=== PATIENT | female | born 1935 | race Caucasian/White ===

== ENCOUNTER → 2024-01-12 13:47 | Outpatient (BNVA) | payer MEDICARE, SELFPAY | PROVIDERS: Family Provider Nurse Practitioner Family; PCP Nurse Practitioner Family; Referring Provider Registered Nurse; Visit Provider Surgery | DX: R13.19 Other dysphagia (principal); R03.0 Elevated blood-pressure reading, without diagnosis of hypertension | CPT/HCPCS: 99204 ==

== ENCOUNTER 2024-01-20 10:17 | Day surgery (SDC) | payer MEDICARE, SELFPAY ==
--- NOTE | 2024-01-20 10:39 | P.HPUD_ITS ---
Surgery/Procedure H&P Update DATE OF PROCEDURE: January 20, 2024 DATE H&P PERFORMED: 01/12/24 H&P UPDATE INFORMATION: I have reviewed H&P completed within last 30 days, I have examined patient prior to procedure, No changes to prior documentation and H&P is in [facility] EMR on date indicated PLANNED PROCEDURE: Operation Date: 01/20/24 11:30 Proposed Procedures p EGD Dilation W/ Balloon [id number], R13.19(Not Applicable) - Christiano Mena MD
[2024-01-20 10:50] VITALS: BP 208/122; PULSE 84; RESP 20; TEMP 36.8; O2SAT 95; BMI 31.1
[2024-01-20] MEDS: sodium chloride 0.9% 1,000 ML 30 ML IV (10:59)
--- NOTE | 2024-01-20 11:10 | ANES.PREANE2 ---
Pre-Anesthetic Assessment Height/Weight: Height 5 ft 2 in Weight 170 lb Temp Pulse Resp BP Pulse Ox O2 Del Method 98.2 F 84 20 H 208/122 95 Room Air 01/20/24 10:50 01/20/24 10:50 01/20/24 10:50 01/20/24 10:50 01/20/24 10:50 01/20/24 10:50 Preop Diagnosis: Dysphagia Operation Date: 01/20/24 11:30 Proposed Procedures p EGD Dilation W/ Balloon [id number], R13.19(Not Applicable) - Christiano Mena MD Was Beta Lianne taken within 24 hours: N/A Was Clonidine taken within 24 hours: N/A Last intake: Intake Last Liquid Date 01/19/24 Last Liquid Time 17:30 Last Solid Date 01/19/24 Last Solid Time 17:30 Social No alcohol and No tobacco Exam alert, oriented x 3, clear to auscultation bilaterally and regular rate & rhythm Airway Submandibular: within normal limits Cervical ROM: within normal limits Mallampati: Class II Dentition: false Anesthetic Plan ASA status: 2 Anesthesia: MAC Other: No prior issues with anesthesia NPO since yesterday History of hypertension on lisinopril. Preop BP 208/122. Will recycle GERD on Protonix History of dysphagia Patient lives at home by herself, still able to perform ADLs Plan for MAC anesthetic Medications/Allergies Home Medications Medication Instructions Recorded Confirmed Last Taken Type lisinopril 5 mg tablet 5 mg PO DAILY 30 days #30 tabs 01/06/24 01/18/24 01/19/24 Rx pantoprazole 20 mg tablet,delayed 20 mg PO DAILY 30 days #30 tabs 01/06/24 01/18/24 01/19/24 Rx release Allergies Allergy/AdvReac Type Severity Reaction Status Date / Time No Known Allergies Allergy Verified 01/18/24 15:37 Current Medications Generic Name Dose Route Start Last Admin Trade Name Freq PRN Reason Stop Dose Admin Sodium Chloride 1,000 mls @ 30 mls/hr 01/20/24 10:30 01/20/24 10:59 Sodium Chloride 0.9% IV 30 mls/hr .Q24H BEST Administration PFSH Anesthesia Medical History History of esophageal stricture Frieda-Lopez tear Surgical History Hx of cholecystectomy Social History Smoking and tobacco/nicotine status: never used tobacco/nicotine Alcohol intake: never Substance/Drug Use: never Data Anesthesia Cardiac Studies: No Data to Display
[2024-01-20 11:25] VITALS: BP 148/85; PULSE 81; RESP 14; TEMP 36.1; O2SAT 94
[2024-01-20 11:43] VITALS: BP 143/91; PULSE 76; RESP 16; O2SAT 95
--- NOTE | 2024-01-20 12:00 | ANE.PACU2 ---
Inpatient post-anesthesia follow up: Airway intact: Yes Vital signs: Temperature 97.0 F Pulse Rate 76 Respiratory Rate 16 Blood Pressure 143/91 Pulse Oximetry 95 Oxygen Delivery Me thod Room Air Oxygen Flow Rate Fraction of Inspir ed Oxygen Hydration adequate: Yes Nausea and vomiting: No Pain level: 1 Mental status: Baseline
== END 2024-01-20 12:00 | disposition home or self-care (01) ==
PROVIDERS: PCP Registered Nurse; Visit Provider Surgery
DX: R13.19 Other dysphagia (principal); K29.30 Chronic superficial gastritis without bleeding; I10 Essential (primary) hypertension; K21.9 Gastro-esophageal reflux disease without esophagitis; R03.0 Elevated blood-pressure reading, without diagnosis of hypertension
CPT/HCPCS: 43239; 88305; J2704; J7030

== ENCOUNTER → 2024-02-02 10:48 | Outpatient (BNVA) | payer MEDICARE, SELFPAY | PROVIDERS: PCP Registered Nurse; Visit Provider Surgery | DX: Z09 Encounter for follow-up examination after completed treatment for conditions other than malignant neoplasm (principal); R03.0 Elevated blood-pressure reading, without diagnosis of hypertension | CPT/HCPCS: 99213 ==

== ENCOUNTER 2024-09-18 11:31 | Emergency (ER) | payer MEDICARE, SELFPAY ==
[2024-09-18 11:34] VITALS: BP 175/125; PULSE 86; TEMP 36.4; O2SAT 97; BMI 29.9
--- OUTSIDE RECORDS SUMMARY | 2024-09-18 11:36 | XMS_ITS | Clinical Summary ---
Author Organization [employer] Address [address] [place]: Epic Prelude [place]T [place] [address] Care Team Providers Care Gas Technician Name Role Phone Unavailable Primary Care Provider Unavailabl e Allergies No known active allergies Medications oxyCODONE (ROXICODONE) 5 mg tablet Take 1 Tablet (5 mg) by mouth every 4 hours as needed for Pain. Max Daily Amount: 30 mg 40 Tablet 0 07/28/2016 Active acetaminophen (TYLENOL) 325 mg tablet Take 2 Tablets (650 mg) by mouth every 6 hours as needed for Other (See Comment) (See admin instructions ). 07/30/2016 Active docusate sodium (COLACE) 100 mg capsule Take 1 Capsule (100 mg) by mouth 2 times daily. 07/30/2016 Active Active Problems Problem Noted Date Diagnosed Date Visit for wound check 08/20/2016 Hypokalemia 07/27/2016 Calculus of bile duct with a cute cholecystitis with obstruction 07/24/2016 Choledocholithiasis Social History Tobacco Use Types Packs/Day Years Used Date Smoking Tobacco: Never Smokeless Tobacco: Never Alcohol Use Standard Drinks/Week Comments No 0 (1 standard drink = 0.6 oz pur e alcohol) Comments Unknown Sex and Gender Information Value Date Recorded Sex Assigned at Not on file Legal Sex Female 11:51 AM BELL HOLE DIGGER Gender Identity Not on file Sexual Orientation Not on file Last Filed Vital Signs Vital Sign Reading Time Taken Comments Blood Pressure 104/60 09/08/2017 11:38 AM CDT Pulse 83 09/08/2017 11:38 AM CDT Temperature 36.4 C (97.6 F) 09/08/2017 10:21 AM CDT Respiratory Rate 22 09/08/2017 11:38 AM CDT Oxygen Saturation - - Inhaled Oxygen Concentration - - Weight 93.4 kg (206 lb) 09/08/2017 7:44 AM CDT Height 160 cm (5' 3 ) 09/08/2017 7:44 AM CDT Body Mass Index 36.49 09/08/2017 7:44 AM CDT Plan of Treatment Health Maintenance Due Date Last Done Comments DTAP/TDAP/TD VACCINES (1 - Tdap) 1954 PNEUMOCOCCAL VACCINE 50+ YEARS (1 of 1 - PCV) 12/15/18 88 ZOSTER VACCINE (1 of 2) 12/16/1987 OSTEOPOROSIS SCREENING 2002 RSV VACCINE (60+ or ) (1 - 1-dose 75+ series) 2012 INFLUENZA VACCINE (#1) 2023 Medical Devices Implanted Type Area Director Career Services Device Identifier Shelf Expiration Date Model / Serial / Lot Lens Io Bi-Aspheric Softechd+20.0 - [id number] Implanted:Qty: 1 on 07/07/2017 by Diego Sanchez MD Eye Right: Eye [employer] 03/25/2022 SOFTECHD+ 20.0 / [id number] / [id number] Lens Io Bi-Aspheric Softechd+20.0 - [id number] Implanted:Qty: 1 on 09/08/2017 by Diego Sanchez MD Eye Left: Eye [employer] 03/25/2022 SOFTECHD+ 20.0 / [id number] / [id number] Hemostatic Surgicel 6x9in 6 - Sna Implanted:Qty: 1 on 07/26/2016 by Duy Granda Jr., MD Hemostatic N/A: Abdomen J[employer]J- [employer] 04/21/2021 1944 / NA / [id number]
--- OUTSIDE RECORDS SUMMARY | 2024-09-18 11:36 | XMS_ITS | Encounter Summary ---
Author Organization [facility] Address [address] [place] [address] Care Team Providers Care Neuropsychiatric Aide Name Role Phone KAREN Piedra Sr., Michael Dave Primary Care Pro vider Reason for Referral * Outpatient Services (Routine) - Closed Specialty Diagnoses / Procedures Referred By Peter goff Referred To Contact Radiology Diagnoses Flank pain Dysuria Procedures CT ABDOMEN PELVIS WO CONTRAST Lul Piedra Sr., FNP [address] [place] [address] Phone: tel: fax: [facility] CT Scan [place] [address] [place] [address] Phone: tel: fax: Referral ID Status Reason Start Date Expiration Date V isits Requested Visits Authorized [id number] Closed MTN View CTS to Schedule (SGF) 03/01/2013 04/01/2014 1 1 DSCRIBER MECHANIC Encounter Details Date Type Department Care Team (Latest Contact Info) Description 03/01/2013 Ancillary Orders [facility] Centralized Scheduling [address] [facility] [address] [address] [place] [address] Lul Piedra Sr., FNP [address] [place] [address] Flank pain (Primary Dx); Dysuria Social History Tobacco Use Types Packs/Day Years Used Date Smoking Tobacco: Never Alcohol Use Standard Drinks/Week Comments No 0 (1 standard drink = 0.6 oz pur e alcohol) Comments No Sex and Gender Information Value Date Recorded Sex Assigned at Not on file Legal Sex Female 5:18 AM SOUNDSCRIBER MECHANIC Gender Identity Not on file Sexual Orientation Not on file documented as of this encounter Plan of Treatment Not on file documented as of this encounter Results * CT ABDOMEN PELVIS WO CONTRAST (03/02/2013 10:54 AM SOUNDSCRIBER MECHANIC) Anatomical Region Laterality Modality Abdomen Computed Tomogra phy 03/02/2013 10:4 0 AM SOUNDSCRIBER MECHANIC Narrative 03/02/2013 12:00 PM SOUNDSCRIBER MECHANIC PROCEDURE CT ABDOMEN and PELVIS, non-contrast 02 March 2013 TECHNIQUE With the patient supine in the scanning gantry, with no oral or IV contrast administered, helical axial imaging was obtained from above the diaphragm through the pelvis at 5 mm increments for 92 axial images. Sagittal and coronal reconstructions are also obtained. DESCRIPTION The study fails reveal evidence of hydronephrosis or nephrolithiasis. Appendix is identified without inflammatory change. There is note of a septated fat containing anterior abdominal wall hernia at approximately the level of the umbilicus measuring approximately 9.7 cm craniocaudally in the subcutaneous fat a 2.9 cm abdominal wall defect in the para midline on the left. There is diverticulosis of the sigmoid colon. The small bowel pattern is unremarkable. The visualized portion of the lung bases is unremarkable. There is cardiomegaly by estimated cardiothoracic ratio. The unenhanced liver shows a 4. a centimeter water density laterally in the right lobe of the liver anterior to the right kidney compatible with cysts. There is a 6 mm lucency in the left lobe of the liver anteriorly compatible with small cyst or hemangioma. No gallbladder calculi are seen. Pancreas and spleen appear unremarkable and adrenal glands appear unremarkable. There is a small sliding-type hiatal hernia present. 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 IMPRESSION 1. cardiomegaly 2. negative for cholelithiasis, nephrolithiasis or hydronephrosis 3. negative for appendicitis 4. paraumbilical abdominal wall hernia and small hiatal hernia Procedure Note Maxime Quiroz MD - 03/02/[address] ABDOMEN and PELVIS, non-contrast 02 March 2013 TECHNIQUE With the patient supine in the scanning gantry, with no oral or IV contrast administered, helical axial imaging was obtained from above the diaphragm through the pelvis at 5 mm increments for 92 axial images. Sagittal and coronal reconstructions are also obtained. DESCRIPTION The study fails reveal evidence of hydronephrosis or nephrolithiasis. Appendix is identified without inflammatory change. There is note of a septated fat containing anterior abdominal wall hernia at approximately the level of the umbilicus measuring approximately 9.7 cm craniocaudally in the subcutaneous fat a 2.9 cm abdominal wall defect in the para midline on the left. There is diverticulosis of the sigmoid colon. The small bowel pattern is unremarkable. The visualized portion of the lung bases is unremarkable. There is cardiomegaly by estimated cardiothoracic ratio. The unenhanced liver shows a 4. a centimeter water density laterally in the right lobe of the liver anterior to the right kidney compatible with cysts. There is a 6 mm lucency in the left lobe of the liver anteriorly compatible with small cyst or hemangioma. No gallbladder calculi are seen. Pancreas and spleen appear unremarkable and adrenal glands appear unremarkable. There is a small sliding-type hiatal hernia present. 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 IMPRESSION 1. cardiomegaly 2. negative for cholelithiasis, nephrolithiasis or hydronephrosis 3. negative for appendicitis 4. paraumbilical abdominal wall hernia and small hiatal hernia us KAREN Anne Sr. CT ORDERABLES F inal Result documented in this encounter Visit Diagnoses Diagnosis Flank pain- Primary Abdominal pain, unspecified site Dysuria Flank pain Abdominal pain, unspecified site Dysuria documented in this encounter Care Teams Neuropsychiatric Aide Relationship Specialty Start Date End Date Lul Piedra Sr., FNP [address] [place] [address] PCP - General NURSE PRACTITIONER 03/02/13 documented as of this encounter
--- OUTSIDE RECORDS SUMMARY | 2024-09-18 11:36 | XMS_ITS | Encounter Summary ---
Author Organization [facility] Address [address] [place] [address] Care Team Providers Care Shirt Sorter Name Role Phone KAREN Piedra Sr., Lul Langley Primary Care Pro vider Encounter Details Date Type Department Care Team (Latest Contact Info) Description 09/05/2001 Outpatient Historical [facility] Medicine [place] [address] [facility] [address] [place] [phone] Gianni Roman, NO ADDRESS ON FILE FX RADIUS NOS-CLOSED (Primary Dx) Social History Tobacco Use Types Packs/Day Years Used Date Smoking Tobacco: Never Assessed Comments Unknown Sex and Gender Information Value Date Recorded Sex Assigned at Not on file Legal Sex Female 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
--- OUTSIDE RECORDS SUMMARY | 2024-09-18 11:36 | XMS_ITS | Encounter Summary ---
Author Organization [facility] Address [address] [place] [address] Care Team Providers Care Client Relations Associate Name Role Phone Tadeo Galvan, BAR FINISH OPERATOR, Lul Langley Primary Care Pro vider Reason for Referral * Outpatient Services (Urgent) - Closed Specialty Diagnoses / Procedures Referred By Peter goff Referred To Contact Diagnoses Cholecystitis Cholelithiasis Elevated bilirubin Elevated liver enzymes Procedures MRI ABDOMEN W WO CONTRAST Dimitris Dow MD Phone: tel: fax: [facility] Pre-Registration [place] CALL TO MAKE APPOINTMENT ONLY [address] [place] [address] Phone: tel: fax: Referral ID Status Reason Start Date Expiration Date Visits Requested Visits Authorized [id number] Closed Interventional Scheduling (SGF) 07/24/2016 08/28/2016 1 1 Encounter Details Date Type Department Care Team ([facility] st Contact Info) Description 07/24/2016 Ancillary Orders 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 Exam: MRI ABDOMEN W WO CONTRAST Date/Time of Exam: 07/24/2016 4:34 PM Reason For Exam: Cholecystitis,Cholelithiasis,Elevated bilirubin,Elevated liver enzymes. Technique: MRI of the abdomen was performed prior to and following the administration of intravenous contrast. Contrast: 20 mL MultiHance Findings: Evaluation limited by extensive motion degradation on multiple sequences. There is intra- and extrahepatic biliary dilatation with the extrahepatic bile duct measuring up to 9 mm in diameter. Dilatation extends to the pancreatic head where there is a 5 mm common duct calculus seen on image 27 of series 3 and series 6 image 8. There are gallstones also noted. The gallbladder wall is mildly thickened. Pancreas is unremarkable. The spleen is within normal limits. Adrenal glands are unremarkable. There are small subcentimeter renal cortical cysts. There is no evidence of ascites or lymphadenopathy. There is a moderate-sized sliding hiatal hernia. The heart is enlarged. IMPRESSION: Distal common duct calculus creating biliary obstruction. Cholelithiasis with mild gallbladder wall thickening. [id number] Narrative Procedure Note Abner Mcfadden MD - 07/24/2016 IMPRESSION IMPRESSION: Please see below. Exam: MRI ABDOMEN W WO CONTRAST Date/Time of Exam: 07/24/2016 4:34 PM Reason For Exam: Cholecystitis,Cholelithiasis,Elevated bilirubin,Elevated liver enzymes. Technique: MRI of the abdomen was performed prior to and following the administration of intravenous contrast. Contrast: 20 mL MultiHance Findings: Evaluation limited by extensive motion degradation on multiple sequences. There is intra- and extrahepatic biliary dilatation with the extrahepatic bile duct measuring up to 9 mm in diameter. Dilatation extends to the pancreatic head where there is a 5 mm common duct calculus seen on image 27 of series 3 and series 6 image 8. There are gallstones also noted. The gallbladder wall is mildly thickened. Pancreas is unremarkable. The spleen is within normal limits. Adrenal glands are unremarkable. There are small subcentimeter renal cortical cysts. There is no evidence of ascites or lymphadenopathy. There is a moderate-sized sliding hiatal hernia. The heart is enlarged. IMPRESSION: Distal common duct calculus creating biliary obstruction. Cholelithiasis with mild gallbladder wall thickening. [id number] Dimitris Dow MD MR ORDERABLES Final Result documented in this encounter Visit Diagnoses Diagnosis Cholecystitis Cholecystitis, unspecified Cholelithiasis Calculus of gallbladder without mention of cholecystitis or obstruction Elevated bilirubin Disorders of bilirubin excretion Elevated liver enzymes Nonspecific elevation of levels of transaminase or lactic acid dehydrogenase (LDH) Cholecystitis Cholecystitis, unspecified Cholelithiasis Calculus of gallbladder without mention of cholecystitis or obstruction Elevated bilirubin Disorders of bilirubin excretion Elevated liver enzymes Nonspecific elevation of levels of transaminase or lactic acid dehydrogenase (LDH) documented in this encounter Care Teams Client Relations Associate Relationship Specialty Start Date End Date Tadeo Galvan, KAREN Barrett [address] [place] [address] PCP - General NURSE PRACTITIONER 03/02/13 documented as of this encounter
--- OUTSIDE RECORDS SUMMARY | 2024-09-18 11:37 | XMS_ITS | Clinical Summary ---
Author Organization [facility] Address [address] [place] [address] Phone Care Team Providers Care Supervisor Opening And Picking Name Role Phone Tadeo Galvan, KAREN, Lul Langley Primary Care Pro vider Allergies No known active allergies Medications ibuprofen (MOTRIN) 200 mg Oral tablet Take 400 mg by mouth every 6 hours as needed. Active aspirin (NAE) 325 mg Oral tablet Take 325 mg by mouth 1 time daily as needed. Active oxyCODONE (ROXICODONE) 5 mg tablet Take 1 Tablet (5 mg) by mouth every 4 hours as needed for Pain. 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 Gender Identity Not on file Sexual Orientation Not on file Last Filed Vital Signs Vital Sign Reading Time Taken Comments Blood Pressure 104/60 09/08/2017 11:38 AM CDT Pulse 83 09/08/2017 11:38 AM CDT Temperature 36.4 C (97.6 F) 09/08/2017 10:21 AM CDT Respiratory Rate 22 09/08/2017 11:38 AM CDT Oxygen Saturation 92% 09/08/2017 11:35 AM CDT Inhaled Oxygen Concentration - - Weight 93.4 [...] (#1) 2023 Medical Devices Implanted Type Area Hr Assistant Device Identifier Shelf Expiration Date Model / Serial / Lot Lens Io Bi-Aspheric Softechd+20.0 - [id number] Implanted:Qty: 1 on 07/07/2017 by Diego Sanchez MD at [facility] Eye Right: Eye [employer] 03/25/2022 SOFTECHD+ 20.0 / [id number] / [id number] Lens Io Bi-Aspheric Softechd+20.0 - [id number] Implanted:Qty: 1 on 09/08/2017 by Diego Sanchez MD at [facility] Eye Left: Eye [employer] 03/25/2022 SOFTECHD+ 20.0 / [id number] / [id number] Hemostatic Surgicel 6x9in 1944 - Sna Implanted:Qty: 1 on 07/26/2016 by Duy Granda Jr., MD at [facility] Hemostatic N/A: Abdomen J[employer]- [employer] 04/21/2021 1944 / NA / [id number] Insurance [facility] Advance Directives For more information, please contact: [phone] * Full Code (Latest Code Status on File) Date Activated Date Inactivated Comments 09/08/2017 9:10 AM 09/08/2017 3:08 PM * Full Code Date Activated Date Inactivated Comments 07/07/2017 12:08 PM 07/07/2017 4:23 PM * Full Code Date Activated Date Inactivated Comments 07/26/2016 6:34 AM 07/30/2016 4:39 PM * Full Code Date Activated Date Inactivated Comments 07/24/2016 10:29 PM 07/26/2016 6:34 AM Care Teams Supervisor Opening And Picking Relationship Specialty Start Date End Date Lul Piedra Sr., FNP [address] [place] [address] PCP - General NURSE PRACTITIONER 03/02/13
--- OUTSIDE RECORDS SUMMARY | 2024-09-18 11:37 | XMS_ITS | Encounter Summary ---
Author Organization [facility] Address [address] [place] [address] Care Team Providers Care Liner Reroll Tender Name Role Phone KAREN Piedra Sr., Lul Langley Primary Care Pro vider Encounter Details Date Type Department Care Team (Latest Contact Info) Description 08/01/2001 Outpatient Historical [facility] Medicine [place] [address] [facility] [address] [place] [phone] Gianni Roman, NO ADDRESS ON FILE FX DISTAL RADIUS NEC-CLOSE (Primary Dx) Social History Tobacco Use Types Packs/Day Years Used Date Smoking Tobacco: Never Assessed Comments Unknown Sex and Gender Information Value Date Recorded Sex Assigned at Not on file Legal Sex Female 5:18 AM CUSTOMER PROJECT MANAGER Gender Identity Not on file Sexual Orientation Not on file documented as of this encounter Plan of Treatment Not on file documented as of this encounter Visit Diagnoses Diagnosis Other closed fractures of distal end of radius (alone)- Primary documented in this encounter Care Teams Liner Reroll Tender Relationship Specialty Start Date End Date Lul Piedra Sr., FNP [address] [place] [address] PCP - General NURSE PRACTITIONER 03/02/13 documented as of this encounter
--- OUTSIDE RECORDS SUMMARY | 2024-09-18 11:37 | XMS_ITS | Encounter Summary ---
Author Organization [facility] Address [address] [place] [address] Care Team Providers Care Game Breeding Farm Manager Name Role Phone KAREN Piedra Sr., Lul Langley Primary Care Pro vider Encounter Details Date Type Department Care Team (Latest Contact Info) Description 07/20/2001 Outpatient Historical [facility] Medicine [place] [address] [facility] [address] [place] [phone] Gianni Roman, NO ADDRESS ON FILE FX DISTAL RADIUS NEC-CLOSE (Primary Dx) Social History Tobacco Use Types Packs/Day Years Used Date Smoking Tobacco: Never Assessed Comments Unknown Sex and Gender Information Value Date Recorded Sex Assigned at Not on file Legal Sex Female 5:18 AM HAMMER SHOP SUPERVISOR Gender Identity Not on file Sexual Orientation Not on file documented as of this encounter Plan of Treatment Not on file documented as of this encounter Visit Diagnoses Diagnosis Other closed fractures of distal end of radius (alone)- Primary documented in this encounter Care Teams Game Breeding Farm Manager Relationship Specialty Start Date End Date Lul Piedra Sr., FNP [address] [place] [address] PCP - General NURSE PRACTITIONER 03/02/13 documented as of this encounter
--- OUTSIDE RECORDS SUMMARY | 2024-09-18 11:37 | XMS_ITS | Encounter Summary ---
Author Organization [facility] Address [address] [place] [address] Care Team Providers Care Male Impersonator Name Role Phone KAREN Piedra Sr., Lul Langley Primary Care Pro vider Encounter Details Date Type Department Care Team (Latest Contact Info) Description 07/25/2001 Outpatient Historical [facility] Medicine [place] [address] [facility] [address] [place] [phone] Gianni Roman, NO ADDRESS ON FILE FX DISTAL RADIUS NEC-CLOSE (Primary Dx) Social History Tobacco Use Types Packs/Day Years Used Date Smoking Tobacco: Never Assessed Comments Unknown Sex and Gender Information Value Date Recorded Sex Assigned at Not on file Legal Sex Female 5:18 AM ELECTRICITY TRADING ANALYST Gender Identity Not on file Sexual Orientation Not on file documented as of this encounter Plan of Treatment Not on file documented as of this encounter Visit Diagnoses Diagnosis Other closed fractures of distal end of radius (alone)- Primary documented in this encounter Care Teams Male Impersonator Relationship Specialty Start Date End Date Lul Piedra Sr., FNP [address] [place] [address] PCP - General NURSE PRACTITIONER 03/02/13 documented as of this encounter
[2024-09-18 12:14] LABS: Basophils # 0.1 10^3/uL (0.0-0.1); Basophils % 0.6 %; Eosinophils # 0.1 10^3/uL (0.0-0.8); Eosinophils % 0.6 %; Hematocrit 38.9 % (36-47); Lymphocytes % 10.2 %; Mean Corpuscular HGB Conc 32.1 g/dL (30-55); Mean Corpuscular Hemoglobin 28.9 pg (27-33); Mean Platelet Volume 9.5 fL (7.4-10.4); Monocytes # 0.7 10^3/uL (0.2-0.9); Neutrophils % 81.3 %; Nucleated Red Blood Cells % 0 %; Platelet Count 227 10^3/cmm (157-399); Red Blood Count 4.32 10^6/uL (3.85-5.65); Red Cell Distribution Width 13.7 % (12.1-15.1); White Blood Count 9.84 10^3/uL (3.29-11.43)
--- NOTE | 2024-09-18 12:19 | ED_ITS ---
HPI - Abdominal Pain 2 General: Chief Complaint: Abdominal Pain Stated Complaint: abd pain, nausea Time Seen by Provider: 09/18/24 12:09 History of Present Illness: 88-year-old female presents emergency ro om complaining of brief episode of sharp abdominal pain is resolved completely she denies any dysuria urgency or frequency no fever sweats chills no diarrhea. No hematochezia melena symptoms coffee-ground emesis. Associated Symptoms: Denies chills, dysuria and fever(s) Related Data Previous Rx's ?Medication ?Instructions ?Recorded lisinopril 10 mg tablet 10 mg PO DAILY 90 days #90 t abs 06/13/24 pantoprazole 20 mg tablet,delayed 20 mg PO BID 90 days #180 tabs 06/13/24 release Allergies Allergy/AdvReac Type Severity Reaction Status Date / Time No Known Allergies Allergy Verified 09/18/24 11:38 Review of Systems 2 Const: Denies: fever(s) or chills Card: Denies: chest pain Resp: Denies: dyspnea GI: Reports: abdominal pain : Denies: dysuria, urinary frequency or urinary urgency Musc: Denies: neck pain or back pain Skin/Breast: Denies: rash PFSH ED 2 PFSH: Medical History History of esophageal stricture Frieda-Lopez tear Surgical History Hx of cholecystectomy Social History Smoking and tobacco/nicotine status: never used tobacco/nicotine Alcohol intake: never Substance/Drug Use: never Physical Exam 2 Const: COMMON NORMALS: no acute distress GENERAL APPEARANCE: cooperative and comfortable ORIENTATION/CONSCIOUSNESS: Yes awake, Yes oriented to person, Yes oriented to place and Yes oriented to time HENMT: COMMON NORMALS: normocephalic, atraumatic and hearing grossly normal bilaterally HEAD & SCALP: normocephalic and atraumatic Resp: COMMON NORMALS: normal respiratory effort, No retractions, No use of accessory muscles and clear to auscultation bilaterally AUSCULTATION: clear to auscultation bilaterally Cardio: COMMON NORMALS: regular rate, regular rhythm and No murmurs present (Cardio) RATE: regular rate RHYTHM: regular rhythm GI: COMMON NORMALS: Soft to palpation and No hepatosplenomegaly present A USCULTATION: Yes normoactive bowel sounds PALPATION: Yes Soft to palpation, No Tenderness to palpation present (GI), No Guarding due to palpation present (GI) and Yes No hepatosplenomegaly present Extremity: COMMON NORMALS: normal to inspection, capillary refill normal, no clubbing, cyanosis or edema, no calf tenderness and no pedal edema Neuro: SENSORIUM/ORIENTATION: Yes oriented to person, Yes oriented to place and Yes oriented to time Skin: COMMON NORMALS: no rashes or lesions noted GENERAL SKIN EXAM: no rashes or lesions noted Course 2 Vital Signs: Vital signs: Vital Signs Temperature 97.6 F 09/18/24 11:34 Pulse Rate 94 09/18/24 14:28 Blood Pressure 175/125 09/18/24 11:34 Pulse Oximetry 100 09/18/24 14:28 Oxygen Delivery Me thod Room Air 09/18/24 11:34 MDM - Abdominal Pain Medical Decision Making Patient admits she has not a bowel movement for several days. Suspect she may just had a bowel spasm related constipation will discharge home changed milk of magnesia or magnesium citrate for constipation. Medical Records I reviewed the patient's medical records. Lab Data I reviewed the patient's lab results. 09/18/24 12:04 09/18/24 12:04 Labs/Radiology: Radiology Impressions Abdomen/Pelvis CT 09/18/24 13:24 IMPRESSION: 1. No evidence of obstructive uropathy. 2. Large ventral abdominal hernia containing multiple nondistended small bowel loops. There is mild fat stranding adjacent to the small bowel entering the hernia and surrounding the bowel loops within the hernia, possibly representing enteritis. No convincing CT evidence of hernia strangulation otherwise however clinical correlation is recommended. No evidence of bowel obstruction. 3. Colonic diverticulosis without CT evidence of acute diverticulitis. 4. Moderate stool burden which could reflect constipation in the appropriate clinical setting. 5. Other chronic and incidental/ancillary findings as above. Laboratory Results WBC 9.84 10^3/uL (3.29-11.43) 09/18/24 12:04 RBC 4.32 10^6/uL (3.85-5.65) 09/18/24 12:04 Hgb 12.50 g/dL (11.27-16.99) 09/18/24 12:04 Hct 38.9 % (36-47) 09/18/24 12:04 MCV 90.0 fl (85-98) 09/18/24 12:04 MCH 28.9 pg (27-33) 09/18/24 12:04 MCHC 32.1 g/dL (30-55) 09/18/24 12:04 RDW 13.7 % (12.1-15.1) 09/18/24 12:04 Plt Count 227 10^3/cmm (157-399) 09/18/24 12:04 MPV 9.5 fL (7.4-10.4) 09/18/24 12:04 Neut % (Auto) 81.3 % 09/18/24 12:04 Lymph % (Auto) 10.2 % 09/18/24 12:04 [place] % (Auto) 7.0 % 09/18/24 12:04 Eos % (Auto) 0.6 % 09/18/24 12:04 Baso % (Auto) 0.6 % 09/18/24 12:04 Neut # (Auto) 8.00 10^3/uL (1.8-7.7) H 09/18/24 12:04 Lymph # (Auto) 1.0 10^3/uL (0.8-4.8) 09/18/24 12:04 [place] # (Auto) 0.7 10^3/uL (0.2-0.9) 09/18/24 12:04 Eos # (Auto) 0.1 10^3/uL (0.0-0.8) 09/18/24 12:04 Baso # (Auto) 0.1 10^3/uL (0.0-0.1) 09/18/24 12:04 Nucleated RBC % (auto) 0 % 09/18/24 12:04 Nucleated RBCs # 0.0 /100WBC 09/18/24 12:04 Sodium 140 mmol/L (136-145) 09/18/24 12:04 Potassium 4.0 mmol/L (3.5-5.1) 09/18/24 12:04 Chloride 105 mmol/L (98-107) 09/18/24 12:04 Carbon Dioxide 22 mmol/L (22-29) 09/18/24 12:04 Anion Gap 17.0 (5-19) 09/18/24 12:04 BUN 21 mg/dL (8-23) 09/18/24 12:04 Creatinine 1.0 mg/dL (0.5-0.9) H 09/18/24 12:04 GFR Calculation Not Reportable 09/18/24 12:04 Glucose 109 mg/dL (65-115) 09/18/24 12:04 Calculated Osmolality 294 mOsm/kg (285-295) 09/18/24 12:04 Calcium 9.2 mg/dL (8.5-10.5) 09/18/24 12:04 Total Bilirubin 0.4 mg/dL (0.15-1.2) 09/18/24 12:04 AST 13 U/L (0-32) 09/18/24 12:04 ALT 6 U/L (0-33) 09/18/24 12:04 Alkaline Phosphatase 109 U/L (35-105) H 09/18/24 12:04 Total Protein 8.7 g/dL (6.6-8.7) 09/18/24 12:04 Albumin 3.5 g/dL (3.5-5.2) 09/18/24 12:04 Globulin 5.2 g/dL (1.3-4.6) H 09/18/24 12:04 Lipase 21 U/L (13-60) 09/18/24 12:04 HCG, Qual Cancelled 09/18/24 12:04 Urine Color Yellow (Yellow) 09/18/24 12:57 Urine Appearance Clear (CLEAR) 09/18/24 12:57 Urine pH 7.5 (5-7) 09/18/24 12:57 Ur Specific [place] 1.008 (1.005-1.030) 09/18/24 12:57 Urine Protein Negative (Negative) 09/18/24 12:57 Urine Glucose (UA) Negative (Normal) 09/18/24 12:57 Urine Ketones Negative (Negative) 09/18/24 12:57 Urine Blood Trace (Negative) A 09/18/24 12:57 Urine Nitrate Negative (Negative) 09/18/24 12:57 Urine Bilirubin Negative (Negative) 09/18/24 12:57 Urine Urobilinogen 1.0 mg/dL (Negative) 09/18/24 12:57 Ur Leukocyte Esterase Trace (Negative) A 09/18/24 12:57 Urine RBC 3-5 /hpf (0-2) 09/18/24 12:57 Urine WBC 0-5 /hpf (0-5) 09/18/24 12:57 Ur Squamous Epith Cells 0-5 /hpf (0-5) 09/18/24 12:57 Amorphous Sediment Not Reportable 09/18/24 12:57 Urine Bacteria None seen /hpf (NONE) 09/18/24 12:57 Hyaline Casts 0.81 /lpf 09/18/24 12:57 All radiology interpretation(s) finalized by discharge Discharge Plan Discharge Patient Disposition: Home Clinical Impression: Constipation Condition: Stable Prescriptions: No Action lisinopril 10 mg tablet 10 mg PO DAILY 90 Days Qty: 90 3RF pantoprazole 20 mg tablet,delayed release (DR/EC) 20 mg PO BID 90 Days Qty: 180 3RF Discharge Orders: Discharge ED (Routine); Ordered 09/18/24 Ordered By: Santo Stephens Referrals: Lani Lopes FNP [Primary Care Provider, Family Practice] Discharge Diet: Usual diet Discharge Activity: Increase activity as tolerated Patient Instructions: Constipation (ED), Opioid Safety, Pain Management, Patient Portal & Natanael Instructions Activity Restrictions/Additional Instructions: Thank you for choosing [facility] for your healthcare needs today. It is very important that you follow up as instructed or that you return to the Emergency Department should you have concerns or if your condition changes or worsens in any way. You were seen emergency room complaining of brief episode abdominal pain CT was normal your lab work is unremarkable. The CT did show some constipation recommend use magnesium citrate or milk of magnesia to relieve this. Print Language: Estonian Coding Level of Care Code ED Medical Technologist Chemistry for Karol Loo
[2024-09-18 12:35] LABS: Alanine Aminotransferase 6 U/L (0-33); Albumin Level 3.5 g/dL (3.5-5.2); Alkaline Phosphatase 109 U/L (35-105); Aspartate Amino Transferase 13 U/L (0-32); Blood Urea Nitrogen 21 mg/dL (8-23); Calcium 9.2 mg/dL (8.5-10.5); Carbon Dioxide 22 mmol/L (22-29); Chloride 105 mmol/L (98-107); Globulin 5.2 g/dL (1.3-4.6); Glucose 109 mg/dL (65-115); Lipase 21 U/L (13-60); Osmolality Calculated 294 mOsm/kg (285-295); Sodium 140 mmol/L (136-145); Total Bilirubin 0.4 mg/dL (0.15-1.2); Total Protein 8.7 g/dL (6.6-8.7)
[2024-09-18 13:10] LABS: Bilirubin Urine Negative (Negative); Blood Urine Trace (Negative); Glucose Urine UA Negative (Normal); Ketones Urine Negative (Negative); Leukocyte Esterase Urine Trace (Negative); Nitrate Urine Negative (Negative); Protein Urine Negative (Negative); Specific Gravity, Urine 1.008 (1.005-1.030); Urine Appearance Clear (CLEAR); Urine Color Yellow (Yellow); pH Urine 7.5 (5-7)
[2024-09-18 13:15] LABS: Add Urine Microscopic? YES; Bacteria Urine None Seen /hpf; Hyaline Casts Urine 0.81 /lpf; Squamous Epithelial Cell Urine 0-5 /hpf (0-5); WBC Urine 0-5 /hpf (0-5)
--- NOTE | 2024-09-18 13:24 | CTR_ITS ---
PROCEDURE INFORMATION: Exam: CT Abdomen And Pelvis Without Contrast Exam date and time: 09/18/2024 1:40 PM Age: 88 years old Clinical indication: Abdominal pain; Flank; Right; Additional info: Flank pain TECHNIQUE: Imaging protocol: Computed tomography of the abdomen and pelvis without contrast. Radiation optimization: All CT scans at this facility use at least one of these dose optimization techniques: automated exposure control; mA and/or kV adjustment per patient size (includes targeted exams where dose is matched to clinical indication); or iterative reconstruction. COMPARISON: No relevant prior studies available. RADIATION DOSE METRICS: Total DLP (mGy-cm): 792.14 FINDINGS: Lungs: Bibasilar atelectasis or scarring. Heart: Cardiomegaly. Liver: Scattered hypoattenuating lesions which most likely represent cysts. Gallbladder and biliary ducts: Gallbladder surgically absent. No ductal dilation. Pancreas: Partially replaced by fat. Spleen: Unremarkable. Adrenal glands: No mass. Kidneys and ureters: No calcified urolithiasis. No hydronephrosis. Stomach and bowel: Moderate hiatal hernia. Unremarkable stomach otherwise. Nondistended bowel loops. Scattered colonic diverticula. Mild fat stranding adjacent to small bowel loops entering large ventral abdominal wall hernia as well as surrounding the bowel loops within the hernia. No significant free fluid within the hernia sac Moderate colonic stool. Appendix: No evidence of appendicitis. Intraperitoneal space: No free air. No significant fluid collection. Vasculature: No abdominal aortic aneurysm. Mild atherosclerosis. Lymph nodes: No pathologically enlarged lymph nodes. Urinary bladder: Unremarkable as visualized. Reproductive: Grossly unremarkable noncontrast CT appearance of the uterus. Previously described endometrial hyperplasia is poorly seen on the current exam. This could be further evaluated with ultrasound if clinically warranted. Bones/joints: Diffuse osseous demineralization. Grade 1 anterolisthesis of L4 on L5. No definite fracture. Soft tissues: As above. CT/CT kidney stone [id number] IMPRESSION: 1. No evidence of obstructive uropathy. 2. Large ventral abdominal hernia containing multiple nondistended small bowel loops. There is mild fat stranding adjacent to the small bowel entering the hernia and surrounding the bowel loops within the hernia, possibly representing enteritis. No convincing CT evidence of hernia strangulation otherwise however clinical correlation is recommended. No evidence of bowel obstruction. 3. Colonic diverticulosis without CT evidence of acute diverticulitis. 4. Moderate stool burden which could reflect constipation in the appropriate clinical setting. 5. Other chronic and incidental/ancillary findings as above.
[2024-09-18 14:28] VITALS: PULSE 94; O2SAT 100
[2024-09-18 15:47] VITALS: BP 171/109; PULSE 91; O2SAT 98
== END 2024-09-18 15:51 | disposition home or self-care (01) ==
PROVIDERS: Emergency Medicine; Emergency Provider Family Medicine; PCP Registered Nurse
DX: K59.00 Constipation, unspecified (principal)
CPT/HCPCS: 36415; 74176; 80053; 81001; 83690; 85025; 99284

== ENCOUNTER 2024-12-19 11:39 | Inpatient (IN) | payer MEDICARE, SELFPAY ==
[2024-12-19] VITALS (12 sets, daily range): BP systolic 104–227; BP diastolic 68–129; PULSE 60–82; RESP 14–22; TEMP 36.3–37.5; O2SAT 89–96; BMI 31.6
--- OUTSIDE RECORDS SUMMARY | 2024-12-19 11:46 | XMS_ITS | Encounter Summary ---
Author Organization [facility] Address [address] [place] [address] Care Team Providers Care Jailor Name Role Phone KAREN Piedra Sr., Lul Langley Primary Care Pro vider Encounter Details Date Type Department Care Team (Latest Contact Info) Description 07/25/2001 Outpatient Historical [facility] Medicine [place] [address] [facility] [address] [place] [phone] Gianni Roman, NO ADDRESS ON FILE FX DISTAL RADIUS NEC-CLOSE (Primary Dx) Social History Tobacco Use Types Packs/Day Years Used Date Smoking Tobacco: Never Assessed Comments Unknown Sex and Gender Information Value Date Recorded Sex Assigned at Not on file 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
--- OUTSIDE RECORDS SUMMARY | 2024-12-19 11:46 | XMS_ITS | Encounter Summary ---
Author Organization [facility] Address [address] [place] [address] Care Team Providers Care Electronic Prepress Operator Name Role Phone KAREN Piedra Sr., Lul Langley Primary Care Pro vider Encounter Details Date Type Department Care Team (Latest Contact Info) Description 08/01/2001 Outpatient Historical [facility] Medicine [place] 104 [facility] [address] [place] [phone] Gianni Roman, NO ADDRESS ON FILE FX DISTAL RADIUS NEC-CLOSE (Primary Dx) Social History Tobacco Use Types Packs/Day Years Used Date Smoking Tobacco: Never Assessed Comments Unknown Sex and Gender Information Value Date Recorded Sex Assigned at Not on file 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
--- OUTSIDE RECORDS SUMMARY | 2024-12-19 11:46 | XMS_ITS | Encounter Summary ---
Author Organization [facility] Address [address] [place] [address] Care Team Providers Care Ed Physicians Name Role Phone KAREN Piedra Sr., Lul Langley Primary Care Pro vider Encounter Details Date Type Department Care Team (Latest Contact Info) Description 09/05/2001 Outpatient Historical [facility] Medicine [place] 104 [facility] [address] [place] [phone] Gianni Roman, NO ADDRESS ON FILE FX RADIUS NOS-CLOSED (Primary Dx) Social History Tobacco Use Types Packs/Day Years Used Date Smoking Tobacco: Never Assessed Comments Unknown Sex and Gender Information Value Date Recorded Sex Assigned at Not on file 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
--- OUTSIDE RECORDS SUMMARY | 2024-12-19 11:46 | XMS_ITS | Clinical Summary ---
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 Gender Identity Not on file Sexual Orientation [...] 1-dose 75+ series) 2012 INFLUENZA VACCINE (#1) 2024 Medical Devices Implanted Type Area Residential Sales Executive Device Identifier Shelf Expiration Date Model / Serial / Lot Lens Io Bi-Aspheric Softechd+20.0 - [id number] Implanted:Qty: 1 on 07/07/2017 by Diego Sanchez MD at [facility] Eye Right: Eye [employer] 03/25/2022 SOFTECHD+ 20.0 / [id number] / [id number] Lens Io Bi-Aspheric Softechd+20.0 - [id number] Implanted:Qty: 1 on 09/08/2017 by Diego Sancehz MD at [facility] Eye Left: Eye [employer] 03/25/2022 SOFTECHD+ 20.0 / [id number] / [id number] Hemostatic Surgicel 6x9in 1944 - Sna Implanted:Qty: 1 on 07/26/2016 by Duy Granda Jr., MD at [facility] Hemostatic N/A: Abdomen J[employer]J- [employer] 04/21/2021 1944 / NA / [id number] Insurance [facility] Advance Directives For more information, please contact: [phone] * Full Code (Latest Code Status on File) Date Activated Date Inactivated Comments 09/08/2017 9:10 AM 09/08/2017 3:08 PM * Full Code Date Activated Date Inactivated Comments 07/07/2017 12:08 PM 07/07/2017 4:23 PM * Full Code Date Activated Date Inactivated Comments 07/26/2016 6:34 AM 07/30/2016 4:39 PM * Full Code Date Activated Date Inactivated Comments 07/24/2016 10:29 PM 07/26/2016 6:34 AM Care Teams Brim Stiffener Relationship Specialty Start Date End Date Lul Piedra Sr., FNP [address] [place] [address] PCP - General NURSE PRACTITIONER 03/02/13
--- OUTSIDE RECORDS SUMMARY | 2024-12-19 11:46 | XMS_ITS | Encounter Summary ---
Author Organization [facility] Address [address] [place] [address] Care Team Providers Care Spice Blender Name Role Phone KAREN Piedra Sr., Lul Langley Primary Care Pro vider Encounter Details Date Type Department Care Team (Latest Contact Info) Description 07/20/2001 Outpatient Historical 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
--- OUTSIDE RECORDS SUMMARY | 2024-12-19 11:46 | XMS_ITS | Clinical Summary ---
Author Organization [facility] Address [address] [place]: Epic Prelude [place] [address] Care Team Providers Care Rehab/Pre Vocational Counselor Name Role Phone Unavailable Primary Care Provider [...] on file Legal Sex Female 11:51 AM SALES VENDOR Gender Identity Not on file Sexual Orientation [...] (#1) 2024 Medical Devices Implanted Type Area Catering Manager Device Identifier Shelf Expiration Date Model / Serial / Lot Lens Io Bi-Aspheric Softechd+20.0 - [id number] Implanted:Qty: 1 on 07/07/2017 by Diego Sanchez MD Eye Right: Eye [employer] 03/25/2022 SOFTECHD+ 20.0 / [id number] / [id number] Lens Io Bi-Aspheric Softechd+20.0 - [id number] Implanted:Qty: 1 on 09/08/2017 by Diego Sanchez MD Eye Left: Eye [employer] 03/25/2022 SOFTECHD+ 20.0 / [id number] / [id number] Hemostatic Surgicel 6x9in 6 - Sna Implanted:Qty: 1 on 07/26/2016 by Duy Granda Jr., MD Hemostatic N/A: Abdomen J[employer]- [employer] 04/21/2021 1944 / NA / [id number]
--- OUTSIDE RECORDS SUMMARY | 2024-12-19 11:46 | XMS_ITS | Encounter Summary ---
Author Organization [facility] Address [address] [place] [address] Care Team Providers Care Rouge Sifter Name Role Phone KAREN Piedra Sr., Michael Dave Primary Care Pro vider Reason for Referral * Outpatient Services (Routine) - Closed Specialty Diagnoses / Procedures Referred By Peter goff Referred To Contact Radiology Diagnoses Flank pain Dysuria Procedures CT ABDOMEN PELVIS WO CONTRAST Lul Piedra Sr., FNP [address] [place] [address] Phone: tel: fax: [facility] CT Scan [place] [address] [place] [address] Phone: tel: fax: Referral ID Status Reason Start Date Expiration Date V isits Requested Visits Authorized [id number] Closed MTN View CTS to Schedule (SGF) 03/01/2013 04/01/2014 1 1 RUCTIONAL TECHNOLOGIST Encounter Details Date Type Department Care Team (Latest Contact Info) Description 03/01/2013 Ancillary Orders [facility] Centralized Scheduling [address] [facility] [address] [place] [address] Lul Piedra Sr., FNP [address] [place] [address] Flank pain (Primary Dx); Dysuria Social History Tobacco Use Types Packs/Day Years Used Date Smoking Tobacco: Never Alcohol Use Standard Drinks/Week Comments No 0 (1 standard drink = 0.6 oz pur e alcohol) Comments No Sex and Gender Information Value Date Recorded Sex Assigned at Not on file Legal Sex Female 5:18 AM INSTRUCTIONAL TECHNOLOGIST Gender Identity Not on file Sexual Orientation Not on file documented as of this encounter Plan of Treatment Not on file documented as of this encounter Results * CT ABDOMEN PELVIS WO CONTRAST (03/02/2013 10:54 AM INSTRUCTIONAL TECHNOLOGIST) Anatomical Region Laterality Modality Abdomen Computed Tomogra phy 03/02/2013 10:4 0 AM INSTRUCTIONAL TECHNOLOGIST Narrative 03/02/2013 12:00 PM INSTRUCTIONAL TECHNOLOGIST PROCEDURE CT ABDOMEN and PELVIS, non-contrast 02 [...] Dysuria documented in this encounter Care Teams Rouge Sifter Relationship Specialty Start Date End Date Lul Piedra Sr., FNP [address] [place] [address] PCP - General NURSE PRACTITIONER 03/02/13 documented as of this encounter
--- OUTSIDE RECORDS SUMMARY | 2024-12-19 11:46 | XMS_ITS | Encounter Summary ---
Author Organization [facility] Address [address] [place] [address] Care Team Providers Care Cloth Trimmer Hand Name Role Phone Tadeo Galvan, CHAINMAN, Lul Langley Primary Care Pro vider Reason for Referral * Outpatient Services (Urgent) - Closed Specialty Diagnoses / Procedures Referred By Peter goff Referred To Contact Diagnoses Cholecystitis Cholelithiasis Elevated bilirubin Elevated liver enzymes Procedures MRI ABDOMEN W WO CONTRAST Dimitris Dow MD Phone: tel: fax: [facility] Pre-Registration Fay CALL TO MAKE APPOINTMENT ONLY [address] [place] [address] Phone: tel: fax: Referral ID Status Reason Start Date Expiration Date Visits Requested Visits Authorized [id number] Closed Interventional Scheduling (SGF) 07/24/2016 08/28/2016 1 1 Encounter Details Date Type Department Care Team ([facility] st Contact Info) Description 07/24/2016 Ancillary Orders [facility] Pre-Registration Fay CALL TO MAKE APPOINTMENT ONLY [address] [place] [address] Dimitris Dow MD [address] [place] [address] Cholecystitis; Cholelithiasis; Elevated bilirubin; Elevated liver enzymes Social History Tobacco Use Types Packs/Day Years Used Date Smoking Tobacco: Never Alcohol Use Standard Drinks/Week Comments No 0 (1 standard drink = 0.6 oz pur e alcohol) Comments No Sex and Gender Information Value Date Recorded Sex Assigned at Not on file 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 Cholelithiasis with mild gallbladder wall thickening. [id number] Narrative Procedure Note Abner Mcfadden MD - [...] obstruction. Cholelithiasis with mild gallbladder wall thickening. [id number] Dimitris Dow MD MR ORDERABLES Final Result [...] (LDH) documented in this encounter Care Teams Cloth Trimmer Hand Relationship Specialty Start Date End Date Tadeo Galvan, KAREN Barrett [address] [place] [address] PCP - General NURSE PRACTITIONER 03/02/13 documented as of this encounter
--- NOTE | 2024-12-19 11:53 | ECG_ITS ---
[employer] Test Date: 2024-12-19 Pat Name: Sherie Arzate Department: Room: Gender: Female Medical Logistics Specialist: : [id number] Requested By: Val Li Order Number: [id number] Serna MD: Roman Ji M.D. Measurements Intervals [place] Rate: 70 P: 16 CO: 239 QRS: -73 QRSD: 163 T: -18 QT: 482 QTc: 521 Interpretive Statements SINUS RHYTHM WITH FIRST DEGREE AV BLOCK RIGHT BUNDLE BRANCH BLOCK [120+ ms QRS DURATION, UPRIGHT V1, 40+ ms S IN I/aVL/V4/V5/V6] LEFT ANTERIOR FASCICULAR BLOCK [QRS AXIS <= -45, QR IN I, RS IN II] Compared to ECG 07/11/2015 05:01:58 Right bundle-branch block now present Left anterior fascicular block now present Myocardial infarct finding no longer present Electronically Signed On 12-21-2024 08:38:38 CDT by Roman Ji M.D. [email or web address]
--- NOTE | 2024-12-19 12:41 | W.ED.ABDPA2 ---
HPI - Abdominal Pain General: Chief Complaint: Abdominal Pain Stated Complaint: n/v hard abd and pain Time Seen by Provider: 12/19/24 12:40 History of Present Illness: 89-year-old female with a history of obesity, and hypertension who presents to the emergency room with recurrent abdominal pain. She was seen in the emergency room about a week ago with this. Family states that this has been becoming more frequent but has been going on for some time. She will develop abdominal pain nausea and vomiting. Abdominal pain was in the lower abdomen today. Related Data Home Medications ?Medication ?Instructions ?Recorded ?Confirmed latanoprost 0.005 % eye drops 1 drp ophthalmic (eye) BEDTIME 12/19/24 12/19/24 timolol maleate 0.5 % eye drops 1 drp ophthalmic (eye) BID 12/19/24 12/19/24 Previous Rx's ?Medication ?Instructions ?Recorded lisinopril 10 mg tablet 10 mg PO DAILY 90 days #90 tabs 06/13/24 pantoprazole 20 mg tablet,delayed 20 mg PO BID 90 days #180 tabs 06/13/24 release Allergies Allergy/AdvReac Type Severity Reaction Status Date / Time No Known Allergies Allergy Verified 10/05/24 11:30 Review of Systems Narrative: Constitutional symptoms: Negative except as documented in HPI. Skin symptoms: Negative except as documented in HPI. Eye symptoms: Negative except as documented in HPI. ENMT symptoms: Negative except as documented in HPI. Respiratory symptoms: Negative except as documented in HPI. Cardiovascular symptoms: Negative except as documented in HPI. Gastrointestinal symptoms: Negative except as documented in HPI. Genitourinary symptoms: Negative except as documented in HPI. Musculoskeletal symptoms: Negative except as documented in HPI. Neurologic symptoms: Negative except as documented in HPI. Psychiatric symptoms: Negative except as documented in HPI. Endocrine symptoms: Negative except as documented in HPI. PFSH ED PFSH: Medical History (Updated 12/19/24 @ 16:36 by Val Toribio MD) History of esophageal stricture Frieda-Lopez tear Surgical History Hx of cholecystectomy Social History Smoking and tobacco/nicotine status: never used tobacco/nicotine Alcohol intake: never Substance/Drug Use: never Physical Exam Narrative: EXAM NARRATIVE: General: Alert, no acute distress. Skin: Warm, dry. Head: Normocephalic, atraumatic. Neck: Supple, trachea midline. Eye: Extraocular movements are intact. Ears, nose, mouth and throat: mucosa moist. Cardiovascular: Regular, Normal peripheral perfusion. Respiratory: Lungs are clear to auscultation, respirations are non-labored, breath sounds are equal, Symmetrical chest wall expansion. Gastrointestinal: Soft, mild generalized tenderness, Non distended, she has a hard ventral hernia. Relatively no tenderness. No redness. But is quite hard Musculoskeletal: Normal ROM, no deformity. Neurological: Alert and oriented, No focal neurological deficit observed. Psychiatric: Cooperative, appropriate mood & affect. Course Vital Signs: Vital signs: Vital Signs Temperature 97.6 F 12/19/24 11:46 Pulse Rate 74 12/19/24 16:37 Respiratory Rate 16 12/19/24 16:37 Blood Pressure 227/129 12/19/24 16:37 Pulse Oximetry 96 12/19/24 16:37 Oxygen Delivery Me thod Room Air 12/19/24 16:37 MDM - Abdominal Pain Medical Decision Making Medical decision making: Differential diagnosis for this patient with nausea and vomiting including but not limited to and based on the above HPI, review of systems and physical exam: Urinary tract infection. Appendicitis. Cholecystitis. Colitis. small bowel obstruction. crohn's flare. pancreatitis. gastritis. peptic ulcer. cyclic vomiting. Viral illness. Influenza. COVID. Orders placed to evaluate differential diagnosis based on the above differential, HPI and physical exam Lab Review: Laboratory results were reviewed and interpreted by myself the emergency room physician. Mild leukocytosis. No anemia. Stable creatinine 1 at 1.1. Urinalysis is negative for infection I reviewed the patient's medical record. Patient has a history of hypertension and obesity. She was seen in the emergency room around a month ago and was diagnosed with constipation. CT of the abdomen pelvis: Concern for worsening ventral abdominal hernia and that there might be air-fluid levels. No evidence of incarceration. Other findings as below. This was reviewed and interpreted by myself the emergency room physician. I also reviewed the radiology report. Consultation: I spoke with Dr. Cuellar who is on-call for general surgery. He has reviewed films and evaluated the patient has taken the patient to the OR. Reexamination: Blood pressure has been quite elevated. Given some hydralazine in the emergency room. No altered mental status. No focal motor deficits. She has had no vomiting since has been here. Pain is better controlled with pain medications. Assessment and plan: Incarcerated ventral hernia Accelerated hypertension ?IV Zofran, IV morphine, IV Dilaudid and IV hydralazine -I discussed the patient with the hospitalist on-call who is admitting the patient. - Discussed findings and plan with patient. Answered any questions. - All laboratory values were reviewed and interpreted personally by myself, the ER physician - All imaging was reviewed and interpreted personally by myself, the ER physician. - Evaluation and treatment of this problem were appropriate in the emergency setting Lab Data 12/19/24 12:33 12/19/24 12:33 Labs/Radiology: Radiology Impressions Abdomen/Pelvis CT 12/19/24 13:30 IMPRESSION: 1. Large ventral abdominal wall hernia containing small bowel. 2. There is a loop of small bowel within the large hernia with air-fluid level and increase in diameter and mild adjacent fat stranding. Suspicious for early changes of incarceration. Recommend evaluation by surgery. No ischemia at this time. This loop of small bowel is increased in size since 09/18/2024. 3. Loop of small bowel proximal to the hernia is mildly dilated and fluid distended. 4. Fluid along the endometrial canal. Suspected mild cervical stenosis. This can be evaluated on an outpatient basis with transvaginal imaging if thought necessary. 5. Prior cholecystectomy. 6. Advanced distal colonic diverticulosis. There is luminal narrowing and wall thickening. No obvious acute diverticulitis identified. There is no abscess or perforation. 7. Moderate size hiatal hernia. Fluid in the distal esophagus. Reflux disease versus incomplete emptying of the esophagus. Laboratory Results WBC 12.27 10^3/uL (3.29-11.43) H 12/19/24 12:33 RBC 4.55 10^6/uL (3.85-5.65) 12/19/24 12:33 Hgb 13.30 g/dL (11.27-16.99) 12/19/24 12:33 Hct 41.5 % (36-47) 12/19/24 12:33 MCV 91.2 fl (85-98) 12/19/24 12:33 MCH 29.2 pg (27-33) 12/19/24 12:33 MCHC 32.0 g/dL (30-55) 12/19/24 12:33 RDW 14.1 % (12.1-15.1) 12/19/24 12:33 Plt Count 283 10^3/cmm (157-399) 12/19/24 12:33 MPV 9.9 fL (7.4-10.4) 12/19/24 12:33 Neut % (Auto) 81.8 % 12/19/24 12:33 Lymph % (Auto) 12.2 % 12/19/24 12:33 [place] % (Auto) 4.1 % 12/19/24 12:33 Eos % (Auto) 0.7 % 12/19/24 12:33 Baso % (Auto) 0.5 % 12/19/24 12:33 Neut # (Auto) 10.03 10^3/uL (1.8-7.7) H 12/19/24 12:33 Lymph # (Auto) 1.5 10^3/uL (0.8-4.8) 12/19/24 12:33 [place] # (Auto) 0.5 10^3/uL (0.2-0.9) 12/19/24 12:33 Eos # (Auto) 0.1 10^3/uL (0.0-0.8) 12/19/24 12:33 Baso # (Auto) 0.1 10^3/uL (0.0-0.1) 12/19/24 12:33 Nucleated RBC % (auto) 0 % 12/19/24 12:33 Nucleated RBCs # 0.0 /100WBC 12/19/24 12:33 Sodium 140 mmol/L (136-145) 12/19/24 12:33 Potassium 3.7 mmol/L (3.5-5.1) 12/19/24 12:33 Chloride 103 mmol/L (98-107) 12/19/24 12:33 Carbon Dioxide 23 mmol/L (22-29) 12/19/24 12:33 Anion Gap 17.7 (5-19) 12/19/24 12:33 BUN 18 mg/dL (8-23) 12/19/24 12:33 Creatinine 1.1 mg/dL (0.5-0.9) H 12/19/24 12:33 GFR Calculation Not Reportable 12/19/24 12:33 Glucose 187 mg/dL (65-115) H 12/19/24 12:33 Calculated Osmolality 297 mOsm/kg (285-295) H 12/19/24 12:33 Lactic Acid 1.3 mmol/L (0.5-2.2) 12/19/24 12:33 Calcium 9.2 mg/dL (8.5-10.5) 12/19/24 12:33 Total Bilirubin 0.3 mg/dL (0.15-1.2) 12/19/24 12:33 AST 15 U/L (0-32) 12/19/24 12:33 ALT 8 U/L (0-33) 12/19/24 12:33 Alkaline Phosphatase 115 U/L (35-105) H 12/19/24 12:33 C-Reactive Protein 3.0 mg/L (0.0-4.9) 12/19/24 12:33 Total Protein 9.3 g/dL (6.6-8.7) H 12/19/24 12:33 Albumin 3.7 g/dL (3.5-5.2) 12/19/24 12:33 Globulin 5.6 g/dL (1.3-4.6) H 12/19/24 12:33 Lipase 16 U/L (13-60) 12/19/24 12:33 Urine Color Yellow (Yellow) 12/19/24 13:28 Urine Appearance Clear (CLEAR) 12/19/24 13:28 Urine pH 7.5 (5-7) 12/19/24 13:28 Ur Specific [place] 1.010 (1.005-1.030) 12/19/24 13:28 Urine Protein 2+ (Negative) A 12/19/24 13:28 Urine Glucose (UA) Trace (Normal) H 12/19/24 13:28 Urine Ketones Negative (Negative) 12/19/24 13:28 Urine Blood 1+ (Negative) A 12/19/24 13:28 Urine Nitrate Negative (Negative) 12/19/24 13:28 Urine Bilirubin Negative (Negative) 12/19/24 13:28 Urine Urobilinogen 0.2 mg/dL (Negative) 12/19/24 13:28 Ur Leukocyte Esterase Negative (Negative) 12/19/24 13:28 Urine RBC 5-10 /hpf (0-2) H 12/19/24 13:28 Urine WBC 0-4 /hpf (0-5) H 12/19/24 13:28 Ur Squamous Epith Cells None /hpf (0-5) 12/19/24 13:28 Amorphous Sediment Not Reportable 12/19/24 13:28 Urine Bacteria None /hpf (NONE) 12/19/24 13:28 Urine Mucus None /hpf 12/19/24 13:28 All radiology interpretation(s) finalized by discharge Discharge Plan Discharge Patient Disposition: Admitted As Inpatient Clinical Impression: Incarcerated ventral hernia, Accelerated hypertension, Abdominal pain, Nausea & vomiting Condition: Stable Coding Level of Care Code ED Farm Equipment Mechanic for Karol Loo
[2024-12-19 13:01] LABS: Hematocrit 41.5 % (36-47); Hemoglobin 13.30 g/dL (11.27-16.99); Mean Corpuscular HGB Conc 32.0 g/dL (30-55); Mean Corpuscular Hemoglobin 29.2 pg (27-33); Mean Corpuscular Volume 91.2 fl (85-98); Nucleated Red Blood Cells % 0 %; Platelet Count 283 10^3/cmm (157-399); Red Blood Count 4.55 10^6/uL (3.85-5.65); White Blood Count 12.27 10^3/uL (3.29-11.43)
[2024-12-19 13:14] LABS: Alanine Aminotransferase 8 U/L (0-33); Albumin Level 3.7 g/dL (3.5-5.2); Alkaline Phosphatase 115 U/L (35-105); Anion Gap 17.7 (5-19); Aspartate Amino Transferase 15 U/L (0-32); Blood Urea Nitrogen 18 mg/dL (8-23); Calcium 9.2 mg/dL (8.5-10.5); Carbon Dioxide 23 mmol/L (22-29); Chloride 103 mmol/L (98-107); Creatinine Clr Calc Pharmacy 39.0622; Globulin 5.6 g/dL (1.3-4.6); Glucose 187 mg/dL (65-115); Lipase 16 U/L (13-60); Osmolality Calculated 297 mOsm/kg (285-295); Potassium 3.7 mmol/L (3.5-5.1); Sodium 140 mmol/L (136-145); Total Protein 9.3 g/dL (6.6-8.7)
[2024-12-19 13:16] LABS: Lactic Sepsis W/Reflex 1.3 mmol/L (0.5-2.2)
--- NOTE | 2024-12-19 13:30 | CT_ITS ---
WS: [id number] CT ABDOMEN AND PELVIS WITH CONTRAST HISTORY: Abdominal pain. No trauma. Nausea and vomiting. TECHNIQUE: Imaging performed of the abdomen and pelvis with IV contrast. Single phase imaging of the abdomen. Coronal and sagittal reformats are submitted. All CT scans at [facility] use at least one of these dose optimization techniques: automated exposure control; mA and/or kV adjustment per patient size (includes targeted exams where dose is matched to clinical indication); or iterative reconstruction. IV CONTRAST: Omnipaque 350; 100 mL IV. Oral contrast: Yes. DLP: 763.21 mGy.cm COMPARISON: 09/18/2024, 07/19/2016 Lower thorax: Mild dependent changes at the lung bases. Mild cardiomegaly. Moderate size hiatal hernia. There is fluid extending into the distal esophagus and also fluid distending the hiatal hernia. Liver/biliary system: Normal size liver. There are a few scattered hypodensities which are too small to characterize. Majority of these hypodensities were present on the prior CTs from 2016 and 09/18/2024. No intrahepatic duct dilatation. Gallbladder: Prior cholecystectomy. Pancreas: Fatty atrophy. Spleen: Normal size spleen. No mass or infarct. Adrenal glands: Normal. Right kidney: No renal obstruction. No perinephric stranding. Left kidney: No obstruction. Low normal size kidney. Aorta: Mild atherosclerosis with no aneurysm. Lymphadenopathy: None. Free fluid: None. GI tract: Mild distention stomach with fluid. There is a large ventral abdominal wall hernia which is been previously described. There is small bowel extending into the hernia sac. There is a single loop of small bowel which is now mildly dilated with a fluid/fluid level. There is mild adjacent fat stranding. The remaining small bowel within the hernia sac is not dilated. The small bowel proximal to this loop is dilated and mildly fluid-filled. This is not a high- grade stenosis and there is no ischemia at this time but there is a focal stricture where the small bowel loop crosses the abdominal wall. No evidence for appendicitis or diverticulitis. Numerous diverticula are present with mild narrowing of the lumen. Abdominal wall: Large ventral abdominal wall hernia containing small bowel. Pelvis: No free fluid or adenopathy within the pelvis. Small caliber uterus. There is fluid in the central endometrial cavity. Bones: Increase in the lumbar lordosis. L4 anterolisthesis by [address]/CT abdomen pelvis w con* [id number] IMPRESSION: 1. Large ventral abdominal wall hernia containing small bowel. 2. There is a loop of small bowel within the large hernia with air-fluid level and increase in diameter and mild adjacent fat stranding. Suspicious for early changes of incarceration. Recommend evaluation by surgery. No ischemia at this time. This loop of small bowel is increased in size since 09/18/2024. 3. Loop of small bowel proximal to the hernia is mildly dilated and fluid dist ended. 4. Fluid along the endometrial canal. Suspected mild cervical stenosis. This c an be evaluated on an outpatient basis with transvaginal imaging if thought nec essary. 5. Prior cholecystectomy. 6. Advanced distal colonic diverticulosis. There is luminal narrowing and wall thickening. No obvious acute diverticulitis identified. There is no abscess or perforation. 7. Moderate size hiatal hernia. Fluid in the distal esophagus. Reflux disease versus incomplete emptying of the esophagus.
[2024-12-19 13:35] LABS: Glucose Urine UA Trace (Normal); Nitrate Urine Negative (Negative); Specific Gravity, Urine 1.010 (1.005-1.030)
[2024-12-19] MEDS: morphine 4 mg/mL SDV 1 mL 2 MG IVP (13:59)
[2024-12-19] MEDS: ondansetron 2 mg/ML SDV 2 mL 4 MG IVP (13:59)
[2024-12-19] MEDS: iohexol 350 mg/mL 500 mL Btl (per mL) IV (14:55)
[2024-12-19] MEDS: HYDROmorphone 0.5 MG/0.5 ML INJ IVP (16:41)
[2024-12-19] MEDS: hyDRALAzine 20 mg/mL INJ 1 mL 10 MG IVP (16:41)
--- NOTE | 2024-12-19 16:41 | P.HP_ITS ---
Providers/Chief Complaint 2 Primary Care Provider: KAREN Alvarado Chief Complaint: n/v hard abd and pain History of Present Illness Sherie Arzate is a 89 year old female who presents to the hospital with severe abdominal pain nausea and vomiting. She has had several episodes of the same problem she states that whenever her hernia sticks out she will feel LEDs and once the hernia reduces she will feel better. A CT scan was done and the CT scan show evidence of a incarcerated ventral hernia that is large in size and contains multiple loops of bowel that appear more dilated than in previous exams. Review of Systems 2 General: Reports: 10 or more systems reviewed and unremarkable except in HPI and below Medications/Allergies Home Medications ?Medication ?Instructions ?Recorded ?Confirmed ?Last Taken ?Type lisinopril 10 mg tablet 10 mg PO DAILY 90 days #90 t abs 06/13/24 12/19/24 12/18/24 Rx pantoprazole 20 mg tablet,delayed 20 mg PO BID 90 days #180 tabs 06/13/24 12/19/24 12/18/24 Rx release latanoprost 0.005 % eye drops 1 drp ophthalmic (eye) B EDTIME 12/19/24 12/19/24 12/18/24 History timolol maleate 0.5 % eye drops 1 drp ophthalmic (eye) BID 12/19/24 12/19/24 12/18/24 History Allergies Allergy/AdvReac Type Severity Reaction Status Date / Time No Known Allergies Allergy Verified 10/05/24 11:30 PFSH Acute 2 PFSH: Medical History (Updated 12/19/24 @ 16:36 by Val Toribio MD) History of esophageal stricture Frieda-Lopez tear Surgical History Hx of cholecystectomy Social History Smoking and tobacco/nicotine status: never used tobacco/nicotine Alcohol intake: never Substance/Drug Use: never Vitals/I&O/Wt Last Vital Signs Temp 97.6 F 12/19/24 11:46 Pulse 74 12/19/24 16:37 Resp 16 12/19/24 16:37 BP 227/129 12/19/24 16:37 Pulse Ox 96 12/19/24 16:37 O2 Del Method Room Air 12/19/24 16:37 Weight last 48 hrs Weight 190 lb Physical Exam 2 GI: OTHER: The abdomen is soft and nontender there is a area of hardness in the mid abdomen corresponding to the incarcerated hernia, despite my best efforts I was unable to reduce it the area is significantly hard when compared with the rest of the abdomen Data 12/19/24 12:33 12/19/24 12:33 Micro: Microbiology 12/19/24 12:33 Blood Culture - Preliminary Blood SPECIMEN COLLECTED 12/19/24 12:43 Blood Culture - Preliminary Blood SPECIMEN COLLECTED A&P Assessment and plan 1. Incarcerated ventral hernia: 2. Nausea & vomitin. Abdominal pain: Plan: 89-year-old female presenting with an incarcerated ventral hernia causing obstruction as evidenced by severe abdominal pain nausea and vomiting. Unfortunately at this point the only option that we have is to proceed to the OR for attempted repair, I have explained to the patient that due to her age the likelihood of postoperative and intraoperative complication increases as well as the likelihood of a delayed recovery increases. I explained all the risk benefits of the procedure including the risk of injury to adjacent structures need for additional interventions, injury to small bowel or colon, need for bowel resection, need for an open abdomen, recurrent ventral hernia, need for ostomy creation, sepsis, . Patient and family member showed understanding they agreed to proceed. I have offered the patient to start with a laparoscopic approach but there is a high likelihood that we will need to do an open ventral hernia repair due to size of the hernia and significantly incarcerated loops of bowel. Patient will be admitted after surgery for postoperative management. PDMP PDMP Reviewed: Not Reviewed Attestations 2 Medical Necessity Statement*: Patient will require 24 to 48 hours of hospital stay after repair of incarcerated ventral hernia Coding Level of Care Code Acute Code for Chg Fwd Diagnoses Incarcerated ventral hernia K43.6 Nausea & vomiting R11.2 Abdominal pain R10.9
--- NOTE | 2024-12-19 16:59 | P.ANESASSM_ITS ---
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 Plan for GETA Medications/Allergies Home Medications ?Medication ?Instructions ?Recorded ?Confirmed ?Last Taken ?Type lisinopril 10 mg tablet 10 mg PO DAILY 90 days #90 t abs 06/13/24 12/19/24 12/18/24 Rx pantoprazole 20 mg tablet,delayed 20 mg PO BID 90 days #180 tabs 06/13/24 12/19/24 12/18/24 Rx release latanoprost 0.005 % eye drops 1 drp ophthalmic (eye) B EDTIME 12/19/24 12/19/24 12/18/24 History timolol maleate 0.5 % eye drops 1 drp ophthalmic (eye) BID 12/19/24 12/19/24 12/18/24 History Allergies Allergy/AdvReac Type Severity Reaction Status Date / Time No Known Allergies Allergy Verified 10/05/24 11:30 [facility] Anesthesia Medical History (Updated 12/19/24 @ 16:36 by Val Toribio MD) History of esophageal stricture Frieda-Lopez tear Surgical History Hx of cholecystectomy Social History Smoking and tobacco/nicotine status: never used tobacco/nicotine Alcohol intake: never Substance/Drug Use: never Data Anesthesia 12/19/24 12:33 12/19/24 12:33 Short CBC 12/19/24 Range/Units 12:33 WBC 12.27 H (3.29-11.43) 10^3/uL Hgb 13.30 (11.27-16.99) g/dL Hct 41.5 (36-47) % MCV 91.2 (85-98) fl Plt Count 283 (157-399) 10^3/cmm Neut % (Auto) 81.8 % Neut # (Auto) 10.03 H (1.8-7.7) 10^3/uL BMP 12/19/24 12:33 Sodium 140 Potassium 3.7 Chloride 103 Carbon Dioxide 23 BUN 18 Creatinine 1.1 H Glucose 187 H Calcium 9.2 Liver Function 12/19/24 Range/Units 12:33 Total Bilirubin 0.3 (0.15-1.2) mg/dL AST 15 (0-32) U/L ALT 8 (0-33) U/L Alkaline Phosphatase 115 H (35-105) U/L Albumin 3.7 (3.5-5.2) g/dL Urine 12/19/24 Range/Units 13:28 Urine Color Yellow (Yellow) Urine Appearance Clear (CLEAR) Urine pH 7.5 (5-7) Ur Specific [place] 1.010 (1.005-1.030) Urine Protein 2+ A (Negative) Urine Glucose (UA) Trace H (Normal) Urine Ketones Negative (Negative) Urine Nitrate Negative (Negative) Urine Bilirubin Negative (Negative) Ur Leukocyte Esterase Negative (Negative) Urine RBC 5-10 H (0-2) /hpf Urine WBC 0-4 H (0-5) /hpf Coags 12/19/24 12:33 C-Reactive Protein 3.0 Microbiology 12/19/24 12:33 Blood Culture - Preliminary Blood SPECIMEN COLLECTED 12/19/24 12:43 Blood Culture - Preliminary Blood SPECIMEN COLLECTED
[2024-12-19] MEDS: piperacillin-tazobactam 3.375 GM in sodium chloride 0.9% (plus) 50 ML IV (17:36)
--- NOTE | 2024-12-19 22:10 | ANE.PACU2 ---
Inpatient post-anesthesia follow up: Airway intact: Yes Vital signs: Temperature 97.5 F Pulse Rate 74 Respiratory Rate 17 Blood Pressure 99/71 Pulse Oximetry 93 Oxygen Delivery Me thod Nasal Cannula Oxygen Flow Rate 2 Fraction of Inspir ed Oxygen Hydration adequate: Yes Nausea and vomiting: No Pain level: 2 Mental status: Baseline Additional Comments: Patient requiring simple facemask for oxygen support to maintain SpO2 92-95%. NG in place which makes nasal cannula difficult
--- NOTE | 2024-12-19 22:16 | PM.OP ---
Operative Report Date of procedure: December 19, 2024 Pre-op diagnosis: Incarcerated ventral incisional hernia Post-op diagnosis: Strangulated ventral incisional hernia Post-op findings: there was a ventral incisional hernia in [place] island[place] cheese configuration with multiple loops of strangulated bowel. the hearnia measured 12cm, bowel resection and anastomosis done. Procedure done: Diagnostic laparoscopy and lysis of adhesions. open primary repair of strangulated ventral incisional hernia, small bowel resection and primary anastomosis. Specimens removed/disposition: segment of small boell Surgeon: Christiano Mena MD Video Photographer: RAYMOND OR STaff Estimated blood loss: 100 Complications: none Brief History: 89 y/o F presenting with a incarcerated hernia causing SBO. after discussion of risk and benefits we proceeded to OR for repair. Procedure: Patient was brought in to the OR, placed n a supine position. general anesthesia was given. the abdomen was prepped and draped in the usual sterile fashion. a time out was conducted. I attempted reduction of the hernia but was imposible. The abdomen was accessed with optiview trocar measuring 5mm in the Left upper quadrant. inicial laparoscopy was done and there was no evidence of visceral injury during entry. additional 5mm trocars were placed on the left flank and left lower quadrant. the hernia noted to be incarcerated, with carefull traction I was able to reduce some of the small bowel, which appeared congested and with devitalized patches. I the spent about 60 minutes doing carefull lisys of adhesion for adhesions from omentum to hernia sac and abdominal wall, small bowel to hernia sac and mesentery to hernia sac. the bowel in the hernia was noted to be severlly fused to the hernia sac, thre were multiple fascial defects in an area on about 12cm. at this point due to severe adhesions I decided to convert to open procedure. the abdomen was accessed via midline lapatotomy incision at the level of the sac under direct visualization. the laparotomy incison w extended to about 15cm. I then wass able to take down the dense adhesions from the small bowel to hernia sac. once the bowel was liberated I run the bowel from the ligament of treitz to the terminal ileum and about 50cm of mid jejunum appeared congested and with areas of necrosis consistent with the bowel that was inside of the hernia. I then resected this segment and completed a side to side anastomosis in an standar fasion using a 100mm Blue load YOU stapler. i then proceeded to close the mesenteric deffect with #3-0 Vicryl. the bowel was examined once again and no evidence of further pathology was noted. the peritoneal cavity was irrigated with 4 liters of saline. I then placed my attention to the hernia sac. the same was excised with electrocautery to clear the fascial edges and was sent to pathology. I the proceeded with primary closure of the fascia of the abdomen using #1 looped PDS sutures. The wound was irrigated, hemostasis was achieved and local anesthesia was infiltrated. the wound was close in layers using#2-0 Vicryl for the subcutaneous tissue and barak for the skin. a sterile dressing was applied. at the end of the procedure all counts were correct, the patient tolerated well the procedure and was transfered to PACU in stable condition.
--- NOTE | 2024-12-19 22:37 | PC.NURSE ---
Addendum entered by Enedina Loo RN 12/20/24 09:28: per anesthesia place pt on simple mask at 6L d/t ineffectiveness of nasal cannula fit with NG tube - notified VENKATESH Godfrey of this upon calling report prior to transfer Original Note: 220 - anesthesia has remained at pts side entire pacu stay
--- NOTE | 2024-12-19 22:44 | XRR_ITS ---
PROCEDURE INFORMATION: Exam: XR Chest Exam date and time: 12/19/2024 10:52 PM Age: 89 years old Clinical indication: Shortness of breath; Prior surgery; Surgery date: Post-operative (0-2 days); Surgery type: Incarcerated hernia; Hypoxia, post op TECHNIQUE: Imaging protocol: Radiologic exam of the chest. Views: 1 view. COMPARISON: CT abdomen pelvis w con* [id number] 12/19/2024 2:52 PM FINDINGS: Tubes, catheters and devices: Gastric tube with tip to the right of the lumbar spine, most likely in the distal stomach or proximal duodenum. Lungs: Mild atelectasis in the left lung base. The lungs are otherwise clear. Pleural spaces: No pleural effusion. No pneumothorax. Heart/Mediastinum: Cardiomegaly. Bones/joints: Unremarkable. Soft tissues: Laparotomy skin barak. Intraperitoneal space: Small amount of pneumoperitoneum, consistent with recent abdominal surgery. XR/XR chest 1V portable [id number] IMPRESSION: Postop chest with a small amount of pneumoperitoneum.
--- NOTE | 2024-12-19 22:47 | P.CONIM_ITS ---
Providers/Reason For Consult 2 Consulting Physician/Specialty*: Dakota Rojas Reason for Consult*: Postop hypoxemia Attending Physician: Christiano Mena MD Primary Care Provider: KAREN Alvarado History of Present Illness History of Present Illness As per the previous notes and the patient Sherie Arzate is a 89 year old female with past medical history of hypertension admitted as a case of incarcerated hernia causing SBO and underwent surgery with lysis of adhesions and repair of the hernia. Hospitalist consulted by the surgery team. Since the patient was having hypoxia requiring 5 to 6 L oxygen supplementation through nasal cannula with saturation above 90 to 93%. Upon history taking, the patient did not report any recent lower leg swelling, exertional shortness of breath, or any previous known history of chronic artery disease, heart failure, liver problems and renal problems. Patient seems to be comfortable while speaking in full sentences without any distress. Medications/Allergies Home Medications ?Medication ?Instructions ?Recorded ?Confirmed ?Last Taken ?Type lisinopril 10 mg tablet 10 mg PO DAILY 90 days #90 t abs 06/13/24 12/19/24 12/18/24 Rx pantoprazole 20 mg tablet,delayed 20 mg PO BID 90 days #180 tabs 06/13/24 12/19/24 12/18/24 Rx release latanoprost 0.005 % eye drops 1 drp ophthalmic (eye) B EDTIME 12/19/24 12/19/24 12/18/24 History timolol maleate 0.5 % eye drops 1 drp ophthalmic (eye) BID 12/19/24 12/19/24 12/18/24 History Allergies Allergy/AdvReac Type Severity Reaction Status Date / Time No Known Allergies Allergy Verified 10/05/24 11:30 PFSH Acute 2 PFSH: Medical History (Updated 12/19/24 @ 23:25 by Dakota Rojas MD) History of esophageal stricture Frieda-Lopez tear Surgical History Hx of cholecystectomy Social History Smoking and tobacco/nicotine status: never used tobacco/nicotine Alcohol intake: never Substance/Drug Use: never Vitals/I&O/Wt Last Vital Signs Temp 99.5 F 12/19/24 22:06 Pulse 70 12/19/24 22:06 Resp 20 H 12/19/24 22:06 BP 134/87 12/19/24 22:06 Pulse Ox 94 12/19/24 22:06 O2 Del Method Simple Mask 12/19/24 22:06 O2 Flow Rate 6 12/19/24 22:06 12/19/24 12/19/24 12/19/24 06:59 14:59 22:59 Intake Total 1900 / 1900 Output Total 500 / 500 Balance 1400 / 1400 Weight last 48 hrs Weight 86.183 kg Physical Exam 2 Narrative: General: Alert and oriented, sitting comfortably, able to speak in full sentences, without any respiratory distress, on oxygen supplementation 5 to 6 L through nasal cannula saturating around 93 to 94% with respiratory rate of 18 to 20/min HEENT: Normocephalic, atraumatic, grossly unremarkable exam Cardio: normal rate rhythm, normal S1-S2 however could not appreciate murmurs or any rubs or gallops due to limited precordium examination as she was having abdominal binder postop Respiratory: Good bilateral air entry on the apices upper and lateral zones however the exam is limited due to abdominal binder and patient poor respiratory effort. There was some harsh crackles on examination however cannot further elaborate? GI: Postop on NGT, abdominal binder no distention or guarding appreciated Neuro: intact cranial nerves motor and sensory and cerebellar/coordination function without any focal neurological deficit Behavior: Appropriate and cooperative Extremities: Adequate palpable pulses, mild trace edema. Urinary Catheter Management: Cordon: Cath Placed During This Visit: yes Urinary Catheter Date of Insertion: 12/19/24 Urinary Catheter Time of Insertion: 18:00 Data 12/19/24 12:33 12/19/24 12:33 Micro: Microbiology 12/19/24 12:33 Blood Culture - Preliminary Blood SPECIMEN COLLECTED 12/19/24 12:43 Blood Culture - Preliminary Blood SPECIMEN COLLECTED A&P Assessment and plan 1. Postoperative hypoxia: - Chest x-ray reported mild atelectasis at the left lung bases therefore could be related to postop atelectasis. -Patient has been on fluids, and no previous history of heart condition diagnosed, cardiomegaly reported on CT scan and chest x-ray, echo ordered and to follow the results - 40 mg Lasix stat -Incentive spirometry and early mobilization advised through OT PT - Continue antibiotics as per primary team plan - Hold fluids meanwhile and monitor blood glucose. - If the patient hypoxia is worsening and along with tachypnea consider CT chest 2. Incarcerated ventral hernia: - As per discretion of the primary team plan 3. Accelerated hypertension: - Monitor blood pressure since the readings are mostly in normal range and hold antihypertensive at the moment. PDMP PDMP Reviewed: Not Reviewed Consult Attestations 2 Medical Necessity Statement: Patient will likely to stay in the hospital as per primary surgery team discretion further management of postop surgery for incarcerated hernia repair Time Spent in Patient Care: 16 - 35 minutes (>than 50% of time sp ent in counselling and/or direct pt care on unit) . Other Attestations: Other Attestations: Patient condition has been discussed at length with the patient/family, I have independently reviewed the chart labs imaging/diagnostics/EKG. The patient/family has been informed about the current condition and further plan of care. Agreed with the plan of care and understood without any language barrier. Every effort was made to ensure accuracy of fur plucker. Any obvious errors or omissions should be clarified with the author of the document. Coding Level of Care Code Acute Code for Chg Fwd Diagnoses Postoperative hypoxia R09.02; Z98.890 Incarcerated ventral hernia K43.6 Accelerated hypertension I10
[2024-12-19] MEDS: FUROsemide 10 mg/mL SDV 4mL 40 MG IVP (23:45)
[2024-12-20] VITALS (8 sets, daily range): BP systolic 99–114; BP diastolic 67–80; PULSE 67–106; RESP 16–18; TEMP 36.3–36.9; O2SAT 91–96
[2024-12-20] MEDS: pantoprazole 40 mg SDV IVP ×2 (00:20→21:03)
[2024-12-20] MEDS: acetaminophen 1,000 MG/100 ML PIGGYBACK 400 MG IV ×3 (00:23→15:53)
[2024-12-20] MEDS: piperacillin-tazobactam 2.25 GM in sodium chloride 0.9% (plus) 50 ML IV ×4 (01:11→21:03)
[2024-12-20 04:53] LABS: Hematocrit 38.9 % (36-47); Hemoglobin 12.60 g/dL (11.27-16.99); Mean Corpuscular HGB Conc 32.4 g/dL (30-55); Mean Corpuscular Hemoglobin 28.4 pg (27-33); Mean Corpuscular Volume 87.8 fl (85-98); Nucleated Red Blood Cells % 0 %; Platelet Count 243 10^3/cmm (157-399); Red Blood Count 4.43 10^6/uL (3.85-5.65); White Blood Count 13.55 10^3/uL (3.29-11.43)
[2024-12-20 05:24] LABS: Anion Gap 18.3 (5-19); Blood Urea Nitrogen 17 mg/dL (8-23); Calcium 8.3 mg/dL (8.5-10.5); Carbon Dioxide 20 mmol/L (22-29); Chloride 106 mmol/L (98-107); Creatinine Clr Calc Pharmacy 43.0818; Glucose 143 mg/dL (65-115); Magnesium 1.6 mg/dL (1.7-2.3); Osmolality Calculated 296 mOsm/kg (285-295); Potassium 3.3 mmol/L (3.5-5.1); Sodium 141 mmol/L (136-145)
--- NOTE | 2024-12-20 05:46 | PC.NURSE ---
Dr. Rojas wrote in his report to hold BP meds for right now. I notified him and clarified if he still wanted me to hold it this morning and he said yes. See physician notification.
--- NOTE | 2024-12-20 08:05 | P.PN_ITS ---
Subjective 2 Subjective: 89-year-old female status post open prim liliam repair of strangulated ventral hernia requiring small bowel resection. She is doing well pain has significantly improved from preop levels. NG output has been low about 200 cc over the last 12 hours. Breathing much better, no significant distress, using incentive spirometer Vitals/I&O/Wt Last Vital Signs Temp 97.5 F L 12/20/24 07:24 Pulse 83 12/20/24 07:24 Resp 17 12/20/24 07:24 BP 104/73 12/20/24 07:24 Pulse Ox 92 12/20/24 07:24 O2 Del Method Nasal Cannula 12/20/24 07:24 O2 Flow Rate 2 12/20/24 06:00 12/19/24 12/20/24 12/20/24 22:59 06:59 14:59 Intake Total 1900 / 1900 250 / 2150 Output Total 500 / 500 1110 / 1610 Balance 1400 / 1400 -860 / 540 Weight last 48 hrs Weight 195 lb Weight 191 lb Weight 190 lb Physical Exam 2 GI: OTHER: Benign abdominal exam the abdomen is soft appropriately tender to palpation nondistended. Urinary Catheter Management: Cordon: Cath Placed During This Visit: yes Urinary Catheter Date of Insertion: 12/19/24 Urinary Catheter Time of Insertion: 18:00 Data 12/20/24 04:24 12/20/24 04:24 Micro: Microbiology 12/19/24 12:33 Blood Culture - Preliminary Blood SPECIMEN COLLECTED 12/19/24 12:43 Blood Culture - Preliminary Blood SPECIMEN COLLECTED A&P Assessment and plan 1. Postoperative hypoxia: 2. Abdominal pain: 3. Incarcerated ventral hernia: Plan: Patient is showing very good progression after laparotomy bowel resection and repair of ventral hernia. We will continue monitoring NG output and if the NG output is low we anticipate to remove the NG tube this afternoon. After she is ambulating with PT and OT Cordon catheter can be removed. The plan will be to keep her n.p.o. today and plan to advance to a clear liquid diet by tomorrow. Will continue IV antibiotics while the patient is in house. We appreciate medical team evaluation for dyspnea and recommendations have been noted. PDMP PDMP Reviewed: Not Reviewed Attestations 2 Medical Necessity Statement*: Patient will require 24 to 40 hours of hospital stay for possible active management after laparotomy. Coding Level of Care Code Acute Code for Chg Fwd Diagnoses Postoperative hypoxia R09.02; Z98.890 Abdominal pain R10.9 Incarcerated ventral hernia K43.6
[2024-12-20] MEDS: HYDROmorphone 0.5 MG/0.5 ML INJ IVP (08:59)
--- NOTE | 2024-12-20 09:19 | PC.CHAP ---
Pastoral Care Encounter/Spiritual Assessment Type of Contact [] Declined livestock agent visit [] Patient/Family/Request visit [] Outpatient visit [] Follow-up visit [] Physician referral [] Code/Alert [x] Routine visit [] Staff referral [] Actively dying [] Patient sleeping [] Family support [] [] Out of room [] Palliative care [] [] Receiving care in room [] Pre-surgical visit [] Trauma [] Long length of stay [] ICU visit [] Other: Relational/Emotional Strength [x] Patient feels connected with others/family/visitors/staff [] Distress [] Loneliness/isolation [] Abandonment Spirituality of Patient [x] Person of Kaylee [] Attends Latter Day of their Kaylee [x] Believes in Prayer [] Reads Bible or Samaritan materials [] There are Spiritual issues to be addressed Journal Clerk Interventions [x] Prayer [x] Active listening [] Non-anxious presence [x] Spiritual/emotional support [] Crisis/trauma care [] Spiritual counseling [] Bereavement support [] Provided bereavement packet [] Provided Bible/devotional materials [] Provided toy/stuffed animal, coloring book to patient or family member [] Provided Communion [] Anointing/[place] [] Salvation [x] Completed spiritual assessment [] Other: Impact on Illness or Injury [] Angry [] Fearful [] Anxious [] Often cries [] Exhaustion [] Unable to work [] Unable to attend gnosticism [] Unable to walk/stand [] Unable to read [] Unable to drive [] Unable to eat/drink [] Unable to sleep [] Unable to be with family [] Patient intubated [] Other: Summary Time spent with patient 5 min
--- NOTE | 2024-12-20 14:07 | P.PN_ITS ---
Subjective 2 Subjective: 89-year-old female status post open prim liliam repair of strangulated ventral hernia requiring small bowel resection. She is doing well pain has significantly improved from preop levels. NG output has been low about 200 cc over the last 12 hours. Breathing much better, no significant distress, using incentive spirometer Patient had some hypotension requiring fluid bolus after diuresis for hypoxemia attributed to potential volume overload. She is companied by her daughter Anita who is present at bedside. Polly states she has nausea after anesthesia and patient states that she had some nausea but not currently. Vitals/I&O/Wt Last Vital Signs Temp 97.5 F L 12/20/24 11:24 Pulse 74 12/20/24 11:24 Resp 17 12/20/24 11:24 BP 99/71 12/20/24 11:24 Pulse Ox 93 12/20/24 11:24 O2 Del Method Nasal Cannula 12/20/24 11:24 O2 Flow Rate 2 12/20/24 06:00 12/19/24 12/20/24 12/20/24 22:59 06:59 14:59 Intake Total 1900 / 1900 250 / 2150 649.65 / 649.65 Output Total 500 / 500 1110 / 1610 Balance 1400 / 1400 -860 / 540 649.65 / 649.65 Weight last 48 hrs Weight 88.451 kg Weight 86.636 kg Weight 86.183 kg Physical Exam 2 Narrative: General well-developed well-nourished female in no acute cardiopulmonary stress CV regular rate and rhythm Lungs clear to auscultation bilaterally Abdomen abdominal binder in place diminished bowel tones Calves no tenderness cords pretrip edema Urinary Catheter Management: Cordon: Cath Placed During This Visit: yes Urinary Catheter Date of Insertion: 12/19/24 Urinary Catheter Time of Insertion: 18:00 Data 12/20/24 04:24 12/20/24 04:24 Micro: Microbiology 12/19/24 12:33 Blood Culture - Preliminary Blood Staphylococcus species 12/19/24 12:43 Blood Culture - Preliminary Blood NEGATIVE TO DATE A&P Assessment and plan 1. Postoperative hypoxia: - Chest x-ray reported mild atelectasis at the left lung bases therefore could be related to postop atelectasis. -Patient has been on fluids, and no previous history of heart condition diagnosed, cardiomegaly reported on CT scan and chest x-ray, echo ordered and to follow the results -Incentive spirometry and early mobilization advised through OT PT - Continue antibiotics as per primary team plan Patient with volume responsive hypotension following diuresis O2 sats now stable on 2 L no further intervention. Will give patient some time to recover postop 2. Incarcerated ventral hernia: Doing well post operatively 3. Accelerated hypertension: Blood pressure was high while patient was in distress upon admission now low. Will give patient time to recover PDMP PDMP Reviewed: Not Reviewed Attestations 2 Medical Necessity Statement*: Patient fred in the hospital post op with hypotension and ileus and expected to recover in the next 1 to 2 days Coding Level of Care Code Acute Code for Chg Fwd Diagnoses Postoperative hypoxia R09.02; Z98.890 Incarcerated ventral hernia K43.6 Accelerated hypertension I10 Time Spent (min) 25
--- NOTE | 2024-12-20 15:45 | PM.MISC ---
Miscellaneous Note Purpose of Documentation: Update on patient care Note: Doing well, blood pressure now has improved significantly after an episode of hypotension while walking in the morning. Angiopathy has continued to be low. There is bowel sounds on examination. Cordon catheter still in place. Will likely keep that until tomorrow morning when she is ambulating more. Will continue IV fluids for tonight the plan is by tomorrow morning to remove the NG tube allow the patient to have a full liquid diet. Anticipated length of stay will be 48 to 72 hours to ensure adequate recovery after major abdominal surgery.
--- NOTE | 2024-12-20 23:17 | USCV_ITS ---
Sherie Arzate Age: 89 Gender: F : 1935 Exam Date: 12/20/2024 10:34 Ordering Phys: Dakota Rojas MD Technologist: Exam Location: [facility] [place] Indication: sob BP: / HR: 72 Rhythm: Sinus Technical Quality: Adequate MEASUREMENTS (Male / Female) Normal Values 2D ECHO LV Diastolic Diameter PLAX 3.1 cm 4.2 - 5.9 / 3.9 - 5.3 cm IVS Diastolic Thickness 1.2 cm 0.6 - 1.0 / 0.6 - 0.9 cm IVS Systolic Thickness 1.6 cm LVPW Diastolic Thickness 1.5 cm 0.6 - 1.0 / 0.6 - 0.9 cm LVPW Systolic Thickness 1.9 cm LVOT Diameter 2.6 cm LV Ejection Fraction 2D Teich 58.6 % LV Ejection Fraction MOD 4C 58.2 % LV Ejection Fraction MOD 2C 64.4 % LV Ejection Fraction 2C AL 63.8 % LA Diameter 4.6 cm RA Systolic Volume 4C AL 44.1 ml RA Systolic Volume 4C MOD 40.0 ml Aorta at Sinotubular Diameter 3.3 cm M-MODE LA Ao Ratio MM 1.2 AV Cusp Separation MM 2.5 cm DOPPLER AV Peak Velocity 377.2 cm/s LVOT Peak Velocity 124.0 cm/s AV Area Cont Eq vti 2.0 cm squared AV Area Cont Eq pk 1.8 cm squared MV Peak Velocity 124.0 cm/s MV Area PHT 3.3 cm squared Mitral E to A Ratio 0.6 TV Peak E Velocity 88.0 cm/s PV Peak Velocity 127.0 cm/s FINDINGS Left Ventricle Normal left ventricular size and systolic function, EF 58%. Mild to moderate left ventricular hypertrophy. No regional wall motion abnormalities. Grade I/IV diastolic dysfunction (abnormal relaxation filling pattern), normal to mildly elevated filling pressures. . Right Ventricle Normal right ventricular size and systolic function. Right Atrium Normal right atrial size. Left Atrium Normal left atrial size. IA Septum Normal appearance of the interatrial septum. Mitral Valve Mild mitral annular calcification. Aortic Valve Moderate aortic valve stenosis, mean gradient 32 mmHg, ROBERT 1.13 cm squared. Peak velocity of 3.74 m/s with a peak gradient of 55 mmHg Tricuspid Valve No gross abnormalities noted Pulmonic Valve Pulmonic valve not well visualized. Pericardium No pericardial effusion. Aorta Normal diameter of the aortic root and ascending thoracic aorta. IVC Inferior vena cava not visualized. CONCLUSIONS Normal left ventricular size and systolic function, EF 58%. Mild to moderate left ventricular hypertrophy. No regional wall motion abnormalities. Grade I/IV diastolic dysfunction (abnormal relaxation filling pattern), normal to mildly elevated filling pressures. . Mild mitral annular calcification. Moderate aortic valve stenosis, mean gradient 32 mmHg, ROBERT 1.13 cm squared. Peak velocity of 3.74 m/s with a peak gradient of 55 mmHg .There is no pericardial effusion. There are no intracardiac masses. Compared to the study from 04/16/2017, there is development of aortic valve stenosis Dr Julio C Calvert MD FACC (Electronically Signed) Final Date: 20 December 2024 21:53 S
[2024-12-21] MEDS: piperacillin-tazobactam 3.375 GM in sodium chloride 0.9% (plus) 50 ML IV ×2 (02:29→23:42)
[2024-12-21 04:00] VITALS: BP 122/88; PULSE 82; RESP 20; TEMP 36.4; O2SAT 91
--- NOTE | 2024-12-21 04:13 | PC.NURSE ---
Patient on NPO diet and has nasogastric tube connected to low intermittent suction.
[2024-12-21 04:47] LABS: Hematocrit 36.5 % (36-47); Hemoglobin 11.60 g/dL (11.27-16.99); Mean Corpuscular HGB Conc 31.8 g/dL (30-55); Mean Corpuscular Hemoglobin 28.4 pg (27-33); Mean Corpuscular Volume 89.2 fl (85-98); Nucleated Red Blood Cells % 0 %; Platelet Count 236 10^3/cmm (157-399); Red Blood Count 4.09 10^6/uL (3.85-5.65); White Blood Count 13.70 10^3/uL (3.29-11.43)
[2024-12-21 05:19] LABS: Blood Urea Nitrogen 31 mg/dL (8-23); Calcium 8.6 mg/dL (8.5-10.5); Carbon Dioxide 21 mmol/L (22-29); Chloride 105 mmol/L (98-107); Creatinine Clr Calc Pharmacy 22.4693; Glucose 115 mg/dL (65-115); Magnesium 1.9 mg/dL (1.7-2.3); Osmolality Calculated 301 mOsm/kg (285-295); Sodium 142 mmol/L (136-145)
[2024-12-21 05:22] LABS: Anion Gap 19.3 (5-19); Potassium 3.3 mmol/L (3.5-5.1)
[2024-12-21 07:24] VITALS: BP 138/79; PULSE 92; RESP 16; TEMP 36.7; O2SAT 91
--- NOTE | 2024-12-21 07:28 | P.PN_ITS ---
Subjective 2 Subjective: 2 days postoperative day 2 status post e xploratory laparotomy bowel resection and primary repair of strangulated ventral hernia. Patient is feeling okay no significant abdominal pain has not passed gas yet, NG output has increased and it has been around 400 cc over the last 24 hours. Other than that patient has been feeling okay Vitals/I&O/Wt Last Vital Signs Temp 98.0 F 12/21/24 07:24 Pulse 92 12/21/24 07:24 Resp 16 12/21/24 07:24 BP 138/79 12/21/24 07:24 Pulse Ox 91 12/21/24 07:24 O2 Del Method Nasal Cannula 12/21/24 07:24 O2 Flow Rate 1.5 12/21/24 04:00 12/20/24 12/21/24 12/21/24 22:59 06:59 14:59 Intake Total 300.35 / 950.00 86.875 / 1036.875 Output Total 300 / 300 250 / 550 Balance 0.35 / 650.00 -163.125 / 486.875 Weight last 48 hrs Weight 187 lb 9 oz Weight 195 lb Weight 191 lb Weight 190 lb Physical Exam 2 GI: OTHER: Abdomen exam is benign the abdomen is soft appropriately tender to palpation there is bowel sounds although they are decreased. Urinary Catheter Management: Cordon: Cath Placed During This Visit: yes Urinary Catheter Date of Insertion: 12/19/24 Urinary Catheter Time of Insertion: 18:00 Data 12/21/24 04:16 12/21/24 04:16 Micro: Microbiology 12/19/24 12:33 Blood Culture - Preliminary Blood Staphylococcus species 12/19/24 12:43 Blood Culture - Preliminary Blood NEGATIVE TO DATE A&P Assessment and plan 1. Strangulated ventral hernia: 2. Postoperative ileus: 3. Acute kidney injury: 4. Hypokalemia: 5. Physical deconditioning: Plan: I have reviewed all available clinical data. Patient blood pressure has been stable now around 120s to 130s over 80s. Her creatinine did trend up, I think this is likely due to hypovolemia after initial diuresis after surgery. I will switch her IV maintenance fluids to D5 half NS with 20 of potassium to provide some nutritional support some fluid volume and also to replace his potassium that is currently 3.3. I will clamp the NG tube for the morning I will check the residue around noon if the residue is low I will plan to remove the NG tube and allow the patient to have clears. In the case of a persistent high residue the next step will be to keep the NG tube until tomorrow and have the patient ambulate as much as possible to improve the postoperative ileus. I will discuss with the medical team regarding further interventions that the patient noted acute kidney injury. Are not that labs are stable white count is 13. I will start DVT prophylaxis today. PDMP PDMP Reviewed: Not Reviewed Attestations 2 Medical Necessity Statement*: Per medical team Coding Level of Care Code Acute Code for Chg Fwd Diagnoses Strangulated ventral hernia K43.6 Postoperative ileus K91.89; K56.7 Acute kidney injury N17.9 Hypokalemia E87.6 Physical deconditioning R53.81
[2024-12-21] MEDS: heparin 5,000 unit/mL INJ 1 mL 5000 UNIT SUBCUT ×2 (08:51→20:36)
[2024-12-21] MEDS: D5-NS 0.45% + KCL 20 mEq 20 MEQ/1,000 ML BAG 75 MEQ IV (08:52)
[2024-12-21] MEDS: potassium phosphate (mMol PO4) 15 MMOL in sodium chloride 0.9% (100 ml) 100 ML 47 MMOL IV (10:49)
--- NOTE | 2024-12-21 10:58 | PM.MISC ---
Miscellaneous Note Purpose of Documentation: Update on patient care Note: Patient is doing very well, no significant nausea abdominal pain has been ambulating. Has tried some ice chips with good tolerance. I checked the residual in the stomach and there was none, the NG tube was removed and she will be allowed to have a clear liquid diet. If she is tolerating she will be advanced to a full liquid by tomorrow morning and hopefully will get her on a GI soft diet before discharge. Will continue the IV fluids for today and the Cordon catheter to be able to monitor the urine output since her creatinine went up. Hopefully by tomorrow we can discontinue both. I will be out of office starting tomorrow morning and therefore patient will be followed by Dr. Sanchez over the weekend. I did inform the patient that she understands.
[2024-12-21 11:25] VITALS: BP 105/74; PULSE 83; RESP 17; TEMP 36.5; O2SAT 91
[2024-12-21 15:32] VITALS: BP 101/77; PULSE 91; RESP 17; TEMP 36.3; O2SAT 95
--- NOTE | 2024-12-21 16:50 | P.PN_ITS ---
Subjective 2 Subjective: 89-year-old female with laparo martin first strangled bowel. She received diuresis for hypoxemia postoperatively and developed acute kidney injury. Patient states she feels fine today. I started her on bicarbonate this morning Vitals/I&O/Wt Last Vital Signs Temp 97.4 F L 12/21/24 15:32 Pulse 91 12/21/24 15:32 Resp 17 12/21/24 15:32 BP 101/77 12/21/24 15:32 Pulse Ox 95 12/21/24 15:32 O2 Del Method Nasal Cannula 12/21/24 15:32 O2 Flow Rate 1.5 12/21/24 04:00 12/21/24 12/21/24 12/21/24 06:59 14:59 22:59 Intake Total 86.875 / 1036.875 168.75 / 168.75 105 / 273.75 Output Total 250 / 550 Balance -163.125 / 486.875 168.75 / 168.75 105 / 273.75 Weight last 48 hrs Weight 85.077 kg Weight 88.451 kg Weight 86.636 kg Physical Exam 2 Narrative: General well-developed well-nourished female in no acute cardiopulmonary stress CV regular rate and rhythm with a 5/6 systolic ejection murmur best heard at the left sternal border this does radiate to the right upper chest Lungs clear to auscultation bilaterally decreased breath sounds at bases Abdomen abdominal binder in place diminished bowel tones Calves no tenderness cords pretibial edema Urinary Catheter Management: Cordon: Cath Placed During This Visit: yes Urinary Catheter Date of Insertion: 12/19/24 Urinary Catheter Time of Insertion: 18:00 Data 12/21/24 04:16 12/21/24 04:16 Micro: Microbiology 12/19/24 12:33 Blood Culture - Preliminary Blood Staphylococcus species 12/19/24 12:43 Blood Culture - Preliminary Blood NEGATIVE TO DATE A&P Assessment and plan 1. Postoperative hypoxia: - Resolving with time 2. Incarcerated ventral hernia: Doing well post operatively 3. Accelerated hypertension: Blood pressure was high while patient was in distress upon admission now low. Will give patient time to recover Patient was hypotensive postop following diuresis and suffered acute kidney injury 4. Acute kidney injury: 1 bag of sodium HCO3 given today repeat mini panel in morning potassium replaced 5. Aortic stenosis: Normal left ventricular size and systolic function, EF 58%. Mild to moderate left ventricular hypertrophy. No regional wall motion abnormalities. Grade I/IV diastolic dysfunction (abnormal relaxation filling pattern), normal to mildly elevated filling pressures. . Mild mitral annular calcification. Moderate aortic valve stenosis, mean gradient 32 mmHg, ROBERT 1.13 cm squared. Peak velocity of 3.74 m/s with a peak gradient of 55 mmHg .There is no pericardial effusion. There are no intracardiac masses. Compared to the study from 04/16/2017, there is development of aortic valve stenosis PDMP PDMP Reviewed: Not Reviewed Attestations 2 Medical Necessity Statement*: Patient remains in the hospital for treatment of acute kidney injury. If kidney function is improving she can be discharged tomorrow Coding Level of Care Code Acute Code for [facility] Diagnoses Postoperative hypoxia R09.02; Z98.890 Incarcerated ventral hernia K43.6 Accelerated hypertension I10 Acute kidney injury N17.9 Aortic stenosis I35.0 Time Spent (min) 35
[2024-12-21 20:00] VITALS: BP 120/79; PULSE 85; RESP 17; TEMP 37.5; O2SAT 95
[2024-12-21] MEDS: pantoprazole 40 mg SDV IVP (23:33)
[2024-12-22 01:00] VITALS: BP 143/85; PULSE 78; RESP 16; TEMP 37.2; O2SAT 95
[2024-12-22 04:00] VITALS: BP 138/81; PULSE 72; RESP 16; TEMP 36.9; O2SAT 95
[2024-12-22 04:56] LABS: Hematocrit 33.0 % (36-47); Hemoglobin 10.60 g/dL (11.27-16.99); Mean Corpuscular HGB Conc 32.1 g/dL (30-55); Mean Corpuscular Hemoglobin 28.0 pg (27-33); Mean Corpuscular Volume 87.3 fl (85-98); Nucleated Red Blood Cells % 0 %; Platelet Count 203 10^3/cmm (157-399); Red Blood Count 3.78 10^6/uL (3.85-5.65); White Blood Count 9.07 10^3/uL (3.29-11.43)
[2024-12-22 05:19] LABS: Anion Gap 15.1 (5-19); Blood Urea Nitrogen 29 mg/dL (8-23); Calcium 8.3 mg/dL (8.5-10.5); Carbon Dioxide 27 mmol/L (22-29); Chloride 104 mmol/L (98-107); Creatinine Clr Calc Pharmacy 38.8106; Glucose 138 mg/dL (65-115); Magnesium 1.9 mg/dL (1.7-2.3); Osmolality Calculated 304 mOsm/kg (285-295); Potassium 3.1 mmol/L (3.5-5.1); Sodium 143 mmol/L (136-145)
[2024-12-22] MEDS: D5-NS 0.45% + KCL 20 mEq 20 MEQ/1,000 ML BAG 75 MEQ IV (05:54)
--- NOTE | 2024-12-22 06:44 | PC.NURSE ---
Pt did not void or soil the bed throughout the night, pt did not have urge to void, bladder scan obtain to reveal only 300mls in bladder.
--- NOTE | 2024-12-22 06:52 | PC.NURSE ---
Cordon was removed prior to this RNs shift. Pt still has not voided. Bladder scan showed only 300mL. Will pass on to next shift.
[2024-12-22 07:56] VITALS: BP 125/89; PULSE 77; RESP 18; TEMP 36.8; O2SAT 92
[2024-12-22] MEDS: piperacillin-tazobactam 3.375 GM in sodium chloride 0.9% (plus) 50 ML IV ×2 (08:36→23:37)
[2024-12-22] MEDS: heparin 5,000 unit/mL INJ 1 mL 5000 UNIT SUBCUT ×2 (08:36→20:30)
[2024-12-22 11:10] LABS: Estmated Average Glucose 108; Hemoglobin A1C 5.4 % (4.0-6.0)
[2024-12-22 11:23] VITALS: BP 119/82; PULSE 75; RESP 16; TEMP 36.3; O2SAT 90
[2024-12-22] MEDS: magnesium sulfate premix 1 GM/100 ML PIGGYBACK IV (11:31)
--- NOTE | 2024-12-22 11:56 | P.PN_ITS ---
Subjective 2 Subjective: Hospital course, labs appreciated. Patient lying comfortably in bed. Denies any nausea, vomiting, headache. States she is able to tolerate her liquid diet. Able to ambulate in room. Vitals/I&O/Wt Last Vital Signs Temp 97.3 F L 12/22/24 11:23 Pulse 75 12/22/24 11:23 Resp 16 12/22/24 11:23 BP 119/82 12/22/24 11:23 Pulse Ox 90 12/22/24 11:23 O2 Del Method Room Air 12/22/24 11:23 O2 Flow Rate 1.5 12/21/24 04:00 12/21/24 12/22/24 12/22/24 22:59 06:59 14:59 Intake Total 1575 / 1743.75 1221.25 / 2965.00 120 / 120 Output Total 200 / 200 Balance 1375 / 1543.75 1221.25 / 2765.00 120 / 120 Weight last 48 hrs Weight 84.822 kg Weight 85.077 kg Physical Exam 2 Narrative: General well-developed well-nourished female in no acute cardiopulmonary stress CV regular rate and rhythm with a 5/6 systolic ejection murmur best heard at the left sternal border this does radiate to the right upper chest Lungs clear to auscultation bilaterally decreased breath sounds at bases Abdomen abdominal binder in place diminished bowel tones Calves no tenderness cords pretibial edema Urinary Catheter Management: Cordon: Cath Placed During This Visit: yes, but has since been removed by the nurse Reason for Continuing Indwelling Catheter: Decision to DC Catheter Urinary Catheter Date of Insertion: 12/19/24 Urinary Catheter Time of Insertion: 18:00 Date Urinary Catheter Removed: 12/21/24 Time Urinary Catheter Discontinued: 19:00 Data 12/22/24 04:33 12/22/24 04:33 A&P Assessment and plan 1. Postoperative hypoxia: - Resolving with time 2. Incarcerated ventral hernia: Doing well post operatively 3. Accelerated hypertension: Blood pressure was high while patient was in distress upon admission now low. Will give patient time to recover Patient was hypotensive postop following diuresis and suffered acute kidney injury 4. Acute kidney injury: 1 bag of sodium HCO3 given today repeat mini panel in morning potassium replaced 5. Aortic stenosis: Normal left ventricular size and systolic function, EF 58%. Mild to moderate left ventricular hypertrophy. No regional wall motion abnormalities. Grade I/IV diastolic dysfunction (abnormal relaxation filling pattern), normal to mildly elevated filling pressures. . Mild mitral annular calcification. Moderate aortic valve stenosis, mean gradient 32 mmHg, ROBERT 1.13 cm squared. Peak velocity of 3.74 m/s with a peak gradient of 55 mmHg .There is no pericardial effusion. There are no intracardiac masses. Compared to the study from 04/16/2017, there is development of aortic valve stenosis Plan for the day: NAN seems to be resolving. Creatinine down to 1.1. Patient able to maintain oral intake. Continue with fluid D5 NS with 20 of potassium but will decrease rate to 50 cc/h. Able to maintain oral intake can discontinue fluid in next 24 hours. Replace 40 mg of oral potassium, 40 minutes of potassium phosphate and 1 g of IV magnesium. Repeat BMP in evening. Goal blood pressure less than 140/90 mmHg. Takes lisinopril 10 mg oral daily at home. Blood pressure at goal for now without antihypertensive. Continue to hold. Patient is safe to be discharged from medical standpoint. Will be discharged without any antihypertensive. Discharge plan: Plan of discharge to SNF once accepted. PDMP PDMP Reviewed: Not Reviewed Attestations 2 Medical Necessity Statement*: As per primary team. Diagnoses Postoperative hypoxia R09.02; Z98.890 Incarcerated ventral hernia K43.6 Accelerated hypertension I10 Acute kidney injury N17.9 Aortic stenosis I35.0
[2024-12-22 12:03] LABS: Cholesterol 93 mg/dL (0-200); HDL Cholesterol 41 mg/dL (60-100); Iron 19 ug/dL (37-145); Thyroid Stimulating Hormone 0.87 uIU/mL (0.27-4.20); Total Iron Binding Capacity 210 mcg/dl; Triglycerides 84 mg/dL (0-150); Unsaturated Iron Binding 191 ug/dL (112-347); VLDL Cholestrol Calculation 17 mg/dL (0-30); Vitamin B12 196 pg/mL (232-1245)
[2024-12-22] MEDS: potassium phosphate (mEq K) 40 MEQ in sodium chloride 0.9% (100 ml) 100 ML 27.25 MEQ IV (12:05)
[2024-12-22 15:26] LABS: Anion Gap 20.6 (5-19); Blood Urea Nitrogen 23 mg/dL (8-23); Calcium 8.3 mg/dL (8.5-10.5); Carbon Dioxide 22 mmol/L (22-29); Chloride 102 mmol/L (98-107); Creatinine Clr Calc Pharmacy 47.3642; Glucose 102 mg/dL (65-115); Osmolality Calculated 294 mOsm/kg (285-295); Potassium 4.6 mmol/L (3.5-5.1); Sodium 140 mmol/L (136-145)
[2024-12-22 16:00] VITALS: BP 138/94; PULSE 81; RESP 17; TEMP 36.8; O2SAT 92
[2024-12-22] MEDS: cyanocobalamin 1,000 mcg/mL SDV 1000 MCG IM (17:15)
--- NOTE | 2024-12-22 20:14 | P.PN_ITS ---
Subjective 2 Subjective: No complaints Vitals/I&O/Wt Last Vital Signs Temp 98.2 F 12/22/24 16:00 Pulse 81 12/22/24 16:00 Resp 17 12/22/24 16:00 BP 138/94 12/22/24 16:00 Pulse Ox 92 12/22/24 16:00 O2 Del Method Room Air 12/22/24 16:00 O2 Flow Rate 1.5 12/21/24 04:00 12/22/24 12/22/24 12/22/24 06:59 14:59 22:59 Intake Total 1221.25 / 2965.00 280 / 356 209.7390 / 559.0909 Balance 1221.25 / 2765.00 280 / 541 889.2594 / 559.0909 Weight last 48 hrs Weight 187 lb Weight 187 lb 9 oz Physical Exam 2 Narrative: Patient is a well developed well nourished and in NAD and is afebrile with vitals stable and is answering questions appropriately with a normal affect and is alert and oriented x3 HEENT: normocephalic with normal external ears and nonicteric, oral mucosa moist and dentition normal for age, trachea midline with no large masses visualized Heart: RRR, no gallops murmurs or rubs, normal PMI with no thrills Lungs: normal excursions, no loud audible wheezing, no subcutaneous emphysema Abdomen: nondistended, no gross hepatosplenomegaly, no masses, no rigidity or rebound, no loud borborygmi Neuro: nonfocal, HARRIS, grossly normal sensation Musculoskeletal: good muscle tone, no fasciculations Skin: pink warm and dry with no rashes or ecchymosis Vascular: good radial pulses, no ulceration, less than 2 second capillary refill in hand : deferred Urinary Catheter Management: Cordon: Cath Placed During This Visit: yes, but has since been removed by the nurse Reason for Continuing Indwelling Catheter: Decision to DC Catheter Urinary Catheter Date of Insertion: 12/19/24 Urinary Catheter Time of Insertion: 18:00 Date Urinary Catheter Removed: 12/21/24 Time Urinary Catheter Discontinued: 19:00 Data 12/22/24 04:33 12/22/24 14:38 A&P Assessment and plan 1. Strangulated ventral hernia: Tolerating clears and advance to full liquids. May go to snf this weekend if willing to accept her. Dressing on wound dry and intact. PDMP PDMP Reviewed: Not Reviewed Attestations 2 Medical Necessity Statement*: patient needs to recover from recent bowel resection and need snf to accept her Coding Level of Care Code Acute Code for [facility] Diagnoses Strangulated ventral hernia K43.6
[2024-12-22 21:00] VITALS: BP 139/78; PULSE 81; RESP 15; TEMP 36.4; O2SAT 91
[2024-12-22] MEDS: pantoprazole 40 mg SDV IVP (23:37)
[2024-12-23 00:38] VITALS: BP 161/89; PULSE 83; RESP 14; TEMP 36.6; O2SAT 97
[2024-12-23 04:14] LABS: Hematocrit 32.9 % (36-47); Hemoglobin 10.30 g/dL (11.27-16.99); Mean Corpuscular HGB Conc 31.3 g/dL (30-55); Mean Corpuscular Hemoglobin 27.8 pg (27-33); Mean Corpuscular Volume 88.7 fl (85-98); Nucleated Red Blood Cells % 0 %; Platelet Count 222 10^3/cmm (157-399); Red Blood Count 3.71 10^6/uL (3.85-5.65); White Blood Count 7.20 10^3/uL (3.29-11.43)
[2024-12-23 04:32] LABS: Magnesium 2.2 mg/dL (1.7-2.3)
[2024-12-23 04:37] LABS: Alanine Aminotransferase 10 U/L (0-33); Albumin Level 2.9 g/dL (3.5-5.2); Alkaline Phosphatase 81 U/L (35-105); Anion Gap 11.7 (5-19); Aspartate Amino Transferase 14 U/L (0-32); Blood Urea Nitrogen 20 mg/dL (8-23); Calcium 8.5 mg/dL (8.5-10.5); Carbon Dioxide 27 mmol/L (22-29); Chloride 107 mmol/L (98-107); Creatinine Clr Calc Pharmacy 47.3642; Globulin 4.2 g/dL (1.3-4.6); Glucose 106 mg/dL (65-115); Osmolality Calculated 297 mOsm/kg (285-295); Potassium 3.7 mmol/L (3.5-5.1); Sodium 142 mmol/L (136-145); Total Protein 7.1 g/dL (6.6-8.7)
[2024-12-23] MEDS: cyanocobalamin 1,000 mcg/mL SDV 1000 MCG IM (05:33)
[2024-12-23 05:58] VITALS: BP 148/77; PULSE 78; RESP 16; TEMP 36.7; O2SAT 92
[2024-12-23 07:26] VITALS: BP 139/83; PULSE 78; RESP 17; TEMP 36.8; O2SAT 92
[2024-12-23] MEDS: piperacillin-tazobactam 3.375 GM in sodium chloride 0.9% (plus) 50 ML IV ×2 (08:19→15:14)
[2024-12-23] MEDS: heparin 5,000 unit/mL INJ 1 mL 5000 UNIT SUBCUT (08:19)
[2024-12-23 11:36] VITALS: BP 110/65; PULSE 78; RESP 18; TEMP 36.7; O2SAT 93
--- NOTE | 2024-12-23 13:36 | P.PN_ITS ---
Subjective 2 Subjective: No acute events overnight. Patient has remained hemodynamically stable and afebrile. Sitting up in chair. Vitals/I&O/Wt Last Vital Signs Temp 98.1 F 12/23/24 11:36 Pulse 78 12/23/24 11:36 Resp 18 12/23/24 11:36 BP 110/65 12/23/24 11:36 Pulse Ox 93 12/23/24 11:36 O2 Del Method Room Air 12/23/24 11:36 O2 Flow Rate 1.5 12/21/24 04:00 12/22/24 12/23/24 12/23/24 22:59 06:59 14:59 Intake Total 576.5909 / 856.5909 605.417 / 1462.0079 120 / 120 Balance 576.5909 / 856.5909 605.417 / 1462.0079 120 / 120 Weight last 48 hrs Weight 84.822 kg Weight 84.822 kg Physical Exam 2 Narrative: General well-developed well-nourished female in no acute cardiopulmonary stress CV regular rate and rhythm with a 5/6 systolic ejection murmur best heard at the left sternal border this does radiate to the right upper chest Lungs clear to auscultation bilaterally decreased breath sounds at bases Abdomen abdominal binder in place diminished bowel tones Calves no tenderness cords pretibial edema Urinary Catheter Management: Cordon: Cath Placed During This Visit: yes, but has since been removed by the nurse Reason for Continuing Indwelling Catheter: Decision to DC Catheter Urinary Catheter Date of Insertion: 12/19/24 Urinary Catheter Time of Insertion: 18:00 Date Urinary Catheter Removed: 12/21/24 Time Urinary Catheter Discontinued: 19:00 Data 12/23/24 02:49 12/23/24 02:49 Micro: Microbiology 12/19/24 12:33 Blood Culture - Final Blood Staphylococcus capitis subsp c A&P Assessment and plan 1. Postoperative hypoxia: - Resolving with time 2. Incarcerated ventral hernia: Doing well post operatively 3. Accelerated hypertension: Blood pressure was high while patient was in distress upon admission now low. Will give patient time to recover Patient was hypotensive postop following diuresis and suffered acute kidney injury 4. Acute kidney injury: 1 bag of sodium HCO3 given today repeat mini panel in morning potassium replaced 5. Aortic stenosis: Normal left ventricular size and systolic function, EF 58%. Mild to moderate left ventricular hypertrophy. No regional wall motion abnormalities. Grade I/IV diastolic dysfunction (abnormal relaxation filling pattern), normal to mildly elevated filling pressures. . Mild mitral annular calcification. Moderate aortic valve stenosis, mean gradient 32 mmHg, ROBERT 1.13 cm squared. Peak velocity of 3.74 m/s with a peak gradient of 55 mmHg .There is no pericardial effusion. There are no intracardiac masses. Compared to the study from 04/16/2017, there is development of aortic valve stenosis Plan for the day: NAN resolved. Stop IV fluids. Encourage more oral intake. Electrolytes stable. Monitor CMP while in hospital. Start on oral Neutra-Phos. Continue with vitamin B12 IM daily. Start on IV iron 200 mg every day supplementation for 5 days. Should discharge on oral vitamin B12, iron supplementation. Blood culture from admission 1 out of 4 bottles positive for Staph capitis. Most likely contaminant. Repeat blood culture. For now continue with IV Zosyn to finish a 5-day course. Patient has remained afebrile. Without leukocytosis. Does not need oral antibiotics on discharge for now. Care discussed detail with primary team. Medicine will sign off. Please call if any questions. Discharge plan: Plan of discharge to SNF once accepted. PDMP PDMP Reviewed: Not Reviewed Attestations 2 Medical Necessity Statement*: As per primary team. Diagnoses Postoperative hypoxia R09.02; Z98.890 Incarcerated ventral hernia K43.6 Accelerated hypertension I10 Acute kidney injury N17.9 Aortic stenosis I35.0
[2024-12-23 15:13] VITALS: BP 137/83; PULSE 85; RESP 16; TEMP 36.7; O2SAT 91
--- NOTE | 2024-12-23 15:31 | P.DS_ITS ---
Discharge Providers Date of Admission: 12/19/24 17:24 Date of Discharge: December 23, 2024 Attending Provider at Admission: Christiano eMna MD Attending Provider at Discharge: Christiano Mena MD Primary Care Provider: KAREN Alvarado Diagnoses at Discharge Discharge Diagnosis 1. Postoperative hypoxia: 2. Incarcerated ventral hernia: 3. Accelerated hypertension: 4. Acute kidney injury: 5. Aortic stenosis: Reason for Visit Reason for Visit: n/v hard abd and pain Hospital Course Hospital Course Patient had surgery 12/19/34 for strnagulated ventral hernia resulting in bowel resection and primary repair of hernia. Postop she did well and tolerating diet and ambulating and passing stool and flatus. Patient had special dressing intact to apply negative pressure on wound to be left on at least a week. There was no surrounding erythema noted or drainage on dressing. She will return to clinic in a week to removed dressing and wound check. She is being sent to halfway. She was not requiring any oral narcotic for pain control at discharge. Nurse present on exam stated patient are sent home with this device and that ortho also uses this wound device. Physical Exam Narrative: Patient is a well developed well nourished and in NAD and is afebrile with vitals stable and is answering questions appropriately with a normal affect and is alert and oriented x3 HEENT: normocephalic with normal external ears and nonicteric, oral mucosa moist and dentition normal for age, trachea midline with no large masses visualized Heart: RRR, no gallops murmurs or rubs, normal PMI with no thrills Lungs: normal excursions, no loud audible wheezing, no subcutaneous emphysema Abdomen: nondistended, no gross hepatosplenomegaly, no masses, no rigidity or rebound, no loud borborygmi Neuro: nonfocal, HARRIS, grossly normal sensation Musculoskeletal: good muscle tone, no fasciculations, normal gait Skin: pink warm and dry with no rashes or ecchymosis Vascular: good radial pulses, no ulceration, less than 2 second capillary refill in hand : deferred Urinary Catheter Management: Cordon: Cath Placed During This Visit: yes, but has since been removed by the nurse Reason for Continuing Indwelling Catheter: Decision to DC Catheter Urinary Catheter Date of Insertion: 12/19/24 Urinary Catheter Time of Insertion: 18:00 Date Urinary Catheter Removed: 12/21/24 Time Urinary Catheter Discontinued: 19:00 Discharge Data Studies Completed and Pending Completed Studies During Hospitalization Category Date Time Status CT abdomen pelvis w con* [id number] Stat Cat Scan 12/19/24 13:30 Completed CXRP [XR chest 1V portable [id number]] Stat Exams 12/19/24 22:44 Completed CV. echo complete* [id number] Routine Ultrasound 12/20/24 23:17 Completed Pending at discharge Category Date Time Status Blood Culture AM LABS Lab 12/24/24 04:00 Ordered Blood Culture Stat Lab 12/19/24 12:43 Results Complete Blood Count w/Auto AM LABS Lab 12/24/24 04:00 Ordered Comprehensive Metabolic Panel AM LABS Lab 12/24/24 04:00 Ordered Pathology: Surgical [PTH] Routine Pth 12/20/24 09:30 Received Radiology Impressions Abdomen/Pelvis CT 12/19/24 13:30 IMPRESSION: 1. Large ventral abdominal wall hernia containing small bowel. 2. There is a loop of small bowel within the large hernia with air-fluid level and increase in diameter and mild adjacent fat stranding. Suspicious for early changes of incarceration. Recommend evaluation by surgery. No ischemia at this time. This loop of small bowel is increased in size since 09/18/2024. 3. Loop of small bowel proximal to the hernia is mildly dilated and fluid distended. 4. Fluid along the endometrial canal. Suspected mild cervical stenosis. This can be evaluated on an outpatient basis with transvaginal imaging if thought necessary. 5. Prior cholecystectomy. 6. Advanced distal colonic diverticulosis. There is luminal narrowing and wall thickening. No obvious acute diverticulitis identified. There is no abscess or perforation. 7. Moderate size hiatal hernia. Fluid in the distal esophagus. Reflux disease versus incomplete emptying of the esophagus. Chest X-Ray 12/19/24 22:44 IMPRESSION: Postop chest with a small amount of pneumoperitoneum. Laboratory Results WBC 7.20 10^3/uL (3.29-11.43) 12/23/24 02:49 RBC 3.71 10^6/uL (3.85-5.65) L 12/23/24 02:49 Hgb 10.30 g/dL (11.27-16.99) L 12/23/24 02:49 Hct 32.9 % (36-47) L 12/23/24 02:49 MCV 88.7 fl (85-98) 12/23/24 02:49 MCH 27.8 pg (27-33) 12/23/24 02:49 MCHC 31.3 g/dL (30-55) 12/23/24 02:49 RDW 14.6 % (12.1-15.1) 12/23/24 02:49 Plt Count 222 10^3/cmm (157-399) 12/23/24 02:49 MPV 10.4 fL (7.4-10.4) 12/23/24 02:49 Neut % (Auto) 69.4 % 12/23/24 02:49 Lymph % (Auto) 17.9 % 12/23/24 02:49 [place] % (Auto) 9.7 % 12/23/24 02:49 Eos % (Auto) 1.9 % 12/23/24 02:49 Baso % (Auto) 0.7 % 12/23/24 02:49 Neut # (Auto) 4.99 10^3/uL (1.8-7.7) 12/23/24 02:49 Lymph # (Auto) 1.3 10^3/uL (0.8-4.8) 12/23/24 02:49 [place] # (Auto) 0.7 10^3/uL (0.2-0.9) 12/23/24 02:49 Eos # (Auto) 0.1 10^3/uL (0.0-0.8) 12/23/24 02:49 Baso # (Auto) 0.1 10^3/uL (0.0-0.1) 12/23/24 02:49 Nucleated RBC % (auto) 0 % 12/23/24 02:49 Nucleated RBCs # 0.0 /100WBC 12/23/24 02:49 Sodium 142 mmol/L (136-145) 12/23/24 02:49 Potassium 3.7 mmol/L (3.5-5.1) 12/23/24 02:49 Chloride 107 mmol/L (98-107) 12/23/24 02:49 Carbon Dioxide 27 mmol/L (22-29) 12/23/24 02:49 Anion Gap 11.7 (5-19) 12/23/24 02:49 BUN 20 mg/dL (8-23) 12/23/24 02:49 Creatinine 0.9 mg/dL (0.5-0.9) 12/23/24 02:49 GFR Calculation Not Reportable 12/23/24 02:49 Glucose 106 mg/dL (65-115) 12/23/24 02:49 Estimat Average Glucose 108 12/22/24 04:33 Hemoglobin A1c 5.4 % (4.0-6.0) 12/22/24 04:33 Calculated Osmolality 297 mOsm/kg (285-295) H 12/23/24 02:49 Lactic Acid 1.3 mmol/L (0.5-2.2) 12/19/24 12:33 Calcium 8.5 mg/dL (8.5-10.5) 12/23/24 02:49 Phosphorus 2.3 mg/dL (2.5-4.5) L 12/22/24 04:33 Magnesium 2.2 mg/dL (1.7-2.3) 12/23/24 02:49 Iron 19 ug/dL (37-145) L 12/22/24 04:33 TIBC 210 mcg/dl 12/22/24 04:33 % Saturation 9.0 % (20-50) L 12/22/24 04:33 Unsat Iron Binding 191 ug/dL (112-347) 12/22/24 04:33 Total Bilirubin 0.7 mg/dL (0.15-1.2) 12/23/24 02:49 AST 14 U/L (0-32) 12/23/24 02:49 ALT 10 U/L (0-33) 12/23/24 02:49 Alkaline Phosphatase 81 U/L (35-105) 12/23/24 02:49 C-Reactive Protein 3.0 mg/L (0.0-4.9) 12/19/24 12:33 Total Protein 7.1 g/dL (6.6-8.7) 12/23/24 02:49 Albumin 2.9 g/dL (3.5-5.2) L 12/23/24 02:49 Globulin 4.2 g/dL (1.3-4.6) 12/23/24 02:49 Triglycerides 84 mg/dL (0-150) 12/22/24 04:33 Cholesterol 93 mg/dL (0-200) 12/22/24 04:33 LDL Cholesterol, Calc 35 mg/dL (50-129) L 12/22/24 04:33 Total VLDL Cholesterol 17 mg/dL (0-30) 12/22/24 04:33 HDL Cholesterol 41 mg/dL (60-100) L 12/22/24 04:33 Cholesterol/HDL Ratio 2.27 mg/dL (0.0-4.40) 12/22/24 04:33 Lipase 16 U/L (13-60) 12/19/24 12:33 Vitamin B12 196 pg/mL (232-1245) L 12/22/24 04:33 Folate 10.8 ng/mL (4.8-37.3) 12/23/24 02:49 TSH 0.87 uIU/mL (0.27-4.20) 12/22/24 04:33 Urine Color Yellow (Yellow) 12/19/24 13:28 Urine Appearance Clear (CLEAR) 12/19/24 13:28 Urine pH 7.5 (5-7) 12/19/24 13:28 Ur Specific [place] 1.010 (1.005-1.030) 12/19/24 13:28 Urine Protein 2+ (Negative) A 12/19/24 13:28 Urine Glucose (UA) Trace (Normal) H 12/19/24 13:28 Urine Ketones Negative (Negative) 12/19/24 13:28 Urine Blood 1+ (Negative) A 12/19/24 13:28 Urine Nitrate Negative (Negative) 12/19/24 13:28 Urine Bilirubin Negative (Negative) 12/19/24 13:28 Urine Urobilinogen 0.2 mg/dL (Negative) 12/19/24 13:28 Ur Leukocyte Esterase Negative (Negative) 12/19/24 13:28 Urine RBC 5-10 /hpf (0-2) H 12/19/24 13:28 Urine WBC 0-4 /hpf (0-5) H 12/19/24 13:28 Ur Squamous Epith Cells None /hpf (0-5) 12/19/24 13:28 Amorphous Sediment Not Reportable 12/19/24 13:28 Urine Bacteria None /hpf (NONE) 12/19/24 13:28 Urine Mucus None /hpf 12/19/24 13:28 Vitals Last Vital Signs Temp 98.0 F 12/23/24 15:13 Pulse 85 12/23/24 15:13 Resp 16 12/23/24 15:13 BP 137/83 12/23/24 15:13 Pulse Ox 91 12/23/24 15:13 O2 Del Method Room Air 12/23/24 15:13 O2 Flow Rate 1.5 12/21/24 04:00 Discharge Plan Discharge Patient Disposition: Xfer [facility] Not MCR Cert Condition: Stable Prescriptions: New cyanocobalamin (vitamin B-12) 5,000 mcg capsule 5,000 mcg PO DAILY Qty: 60 0RF tramadol 50 mg tablet 50 mg PO Q12H PRN (Reason: pain) Qty: 20 0RF Rx Instructions: may take 0.5 pill or 1 pill as needed every 12 hours prn Continued lisinopril 10 mg tablet 10 mg PO DAILY 90 Days Qty: 90 3RF pantoprazole 20 mg tablet,delayed release (DR/EC) 20 mg PO BID 90 Days Qty: 180 3RF latanoprost 0.005 % drops 1 drp ophthalmic (eye) BEDTIME timolol maleate 0.5 % drops 1 drp ophthalmic (eye) BID Discharge Order = DC NOW: Discharge Order (Routine); Ordered 12/23/24 Ordered By: Patel Sanchez Referrals: Christiano Mena MD [Physician, General Surgery] - 01/09/25 8:55 am Lani Lopes FNP [Primary Care Provider, [facility]] - 01/01/25 9:00 am Discharge Activity: Limit activity as instructed Patient Instructions: Acute Wound Care (DC), Opioid Safety, Patient Portal & Natanael Instructions Activity Restrictions/Additional Instructions: Do lift over 5 pounds for 3 weeks then can lift up to 10 pounds for 3 more weeks more then released to full duty and no restrictions. General diet. Do not drink or drive while on narcotic medications. RTC in 1 week general surgery clinic. May shower but replace wet dressings with new dry ones. Call for fever over 101.5F or increasing abdominal pain, nausea or problems with voiding or stooling, or bleeding. Call for signs or symptoms of wound infection including increasing redness/swelling/warmth/pain and drainage. Do not soak in bathtub/pool/iraheta for 30 days. Discharge Attestations Time Spent in Discharge Care*: less than 30 min Quality Metrics Clinical Quality Measures [ No reported AMI, CVA or VTE this stay] Coding Level of Care Code 67285 Diagnoses Postoperative hypoxia R09.02; Z98.890 Incarcerated ventral hernia K43.6 Accelerated hypertension I10 Acute kidney injury N17.9 Aortic stenosis I35.0
[2024-12-23 17:17] VITALS: BP 137/83; PULSE 85; RESP 16; TEMP 36.6; O2SAT 91
== END 2024-12-23 17:19 | disposition skilled nursing facility (03) | DRG 330 ==
LOC: ER 16:36 → OR 16:52 → MEDSURG 17:24
PROVIDERS: Student in an Organized Health Care Education/Training Program; Admitting Provider Surgery; Emergency Provider Emergency Medicine; PCP Registered Nurse; Visit Provider Surgery
PROC: 0WQF4ZZ Repair Abdominal Wall, Percutaneous Endoscopic Approach (ICD-10-PCS; principal; 2024-12-19 17:30)
PROC: 0DB80ZZ Excision of Small Intestine, Open Approach (ICD-10-PCS; CPT 44120; 2024-12-19 17:30)
DX: K43.0 Incisional hernia with obstruction, without gangrene (principal); J95.89 Other postprocedural complications and disorders of respiratory system, not elsewhere classified; N17.9 Acute kidney failure, unspecified; K91.89 Other postprocedural complications and disorders of digestive system; K56.7 Ileus, unspecified; K66.0 Peritoneal adhesions (postprocedural) (postinfection); I10 Essential (primary) hypertension; I35.0 Nonrheumatic aortic (valve) stenosis; I95.9 Hypotension, unspecified; E87.6 Hypokalemia
CPT/HCPCS: 36415; 51702; 71045; 74177; 80048; 80053; 80061; 81001; 82607; 82746; 83036; 83540; 83550; 83605; 83690; 83735; 84100; 84443; 85025; 86140; 87040; 87077; 87186; 88302; 88307; 93005; 93306; 96372; 96374; 96375; 97110; 97116; 97163; 97530; 99285; J0131; J0330; J0360; J1100; J1171; J1644; J1938; J2270; J2405; J2470; J2543; J2704; J3010; J3420; J3475; J3490; J7030; J7070; J7120; J9999; P9045

== ENCOUNTER → 2025-01-09 08:56 | Outpatient (BNVA) | payer MEDICARE, SELFPAY | PROVIDERS: PCP Registered Nurse; Visit Provider Surgery | DX: Z98.890 Other specified postprocedural states (principal) | CPT/HCPCS: 99024 ==

== ENCOUNTER → 2025-03-07 09:36 | Outpatient (BNVA) | payer MEDICARE, SELFPAY | PROVIDERS: PCP Registered Nurse; Visit Provider Registered Nurse | DX: E53.8 Deficiency of other specified B group vitamins (principal) | CPT/HCPCS: 82607 ==